=== PATIENT | male | born 1970 | race Caucasian/White ===

== ENCOUNTER 2021-07-18 08:42 | Inpatient (IN) ==
[2021-07-18] MEDS ORDERED: ALBUT/IPRATROP 3MG/0.5MG NEB 3 ML VIAL INH STA (09:28)
[2021-07-18] MEDS ORDERED: FUROSEMIDE 40 MG/4 ML VIAL IV STA (09:28)
--- NOTE | 2021-07-18 09:36 | Emergency Department Note ---
History of Present Illness General Chief complaint: Shortness of Breath/Dyspnea Stated complaint: SOB, WET COUGH, DIZZY, EDEMA Time Seen by Provider: 07/18/21 09:13 History of Present Illness 50-year-old male presents to the ED with a chief complaint of shortness of breath. The patient states that his symptoms started Friday with some dizziness. He began feeling short of breath yesterday with the cough that is productive for phlegm. He also noticed some gurgling noises in his throat. His shortness of breath is worse with exertion. He has had the Covid vaccine. No additional complaints at this time. Home Medications Medication Instructions Recorded Confirmed Type atorvastatin 20 mg tablet 20 mg PO QDL 11/24/18 07/18/21 History cinnamon bark 500 mg capsule 2 cap PO BID 11/24/18 07/18/21 History (Cinnamon) cyanocobalamin (vitamin B-12) 1,000 mcg PO QDL 11/24/18 07/18/21 History 1,000 mcg tablet (Vitamin B-12) insulin aspart U-100 100 unit/mL 30 unit SUBCUT AC 11/24/18 07/18/21 History subcutaneous cartridge (Novolog PenFill U-100 Insulin aspart) levothyroxine 100 mcg capsule 100 mcg PO QAM 11/24/18 07/18/21 History lisinopril 20 1.5 tab PO QDL 11/24/18 07/18/21 History mg-hydrochlorothiazide 25 mg tablet metformin 1,000 mg tablet,extended 1,000 mg PO BID 11/24/18 07/18/21 History release 24hr multivitamin 1 tab PO QDL 11/24/18 07/18/21 History insulin degludec 200 unit/mL (3 90 unit SUBCUT DAILY 07/18/21 07/18/21 History mL) subcutaneous pen (Tresiba FlexTouch U-200 insulin) Allergies Allergy/AdvReac Type Severity Reaction Status Date / Time Penicillins Allergy Intermediate HIVES Verified 07/18/21 09:47 Past Med/Surg History Medical History (Updated 07/18/21 @ 11:29 by Latrell Doshi DO) Cardiac murmur as a teenager, no issues since Diabetes mellitus, type 2 Hyperlipidemia Hypertension Hypothyroidism Morbid obesity Patient was 366# when he had partial toe amputation done. Now patient weights 419 pounds. Peripheral neuropathy Surgical History History of cataract surgery RT CATARACT History of partial amputation of toe of left foot 2013 done at [facility] by Dr. vinson. Airway exam at the time showed MP 2. 3 FB TMD. Procedure done under popliteal nerve block and sedation (propofol/fentanyl/versed) without issues. Family History Grandfather (Paternal) Family history of diabetes mellitus Grandmother (Maternal) Family history of diabetes mellitus Social History Smoking Status: Never smoker Second Hand Exposure: No; Hx Alcohol Use: Yes Alcohol type: beer, wine and hard liquor Hx Substance Use: No Preferred Language: Filipino Communication Ability: Effective Pallet Sorter Required: No Beliefs That Will Affect Care: None Current Living Situation: Alone Feels Safe at Home: Yes Assistive Devices: Glasses Review of Systems A total of 10 systems reviewed and were otherwise negative Physical Exam Vital Signs Vital Signs - 24 hr 07/18/21 08:49 07/18/21 08:58 07/18/21 09:09 Temperature 36.6 C Temperature Source Oral Pulse Rate 125 H 128 H Pulse Rate [Right Finger] Pulse Rate from SpO2 Sensor 125 H Respiratory Rate 28 H 26 H Respiratory Effort / Characteristics Blood Pressure 181/94 H 181/94 H Blood Pressure Mean 123 123 Pulse Oximetry 93 86 L 86 L Oxygen Delivery Method Room Air Oxygen Flow Rate 6 Sepsis Recent Fever Within 48 Hours No Sepsis New/Unexplained Change in Mental Status N/A Sepsis Action Taken by Nursing No Action Required Oxygen Flow Rate - Titration 6 Pulse Oximetry Post Tiitration 91 07/18/21 09:37 07/18/21 10:08 07/18/21 10:26 Temperature Temperature Source Pulse Rate 112 H Pulse Rate [Right Finger] 115 H Pulse Rate from SpO2 Sensor 112 H Respiratory Rate 18 26 H Respiratory Effort / Characteristics Spontaneous Blood Pressure 148/95 H Blood Pressure Mean 112 Pulse Oximetry 91 94 95 Oxygen Delivery Method Nasal Cannula Nasal Cannula Oxygen Flow Rate 6 5 6 Sepsis Recent Fever Within 48 Hours Sepsis New/Unexplained Change in Mental Status Sepsis Action Taken by Nursing Oxygen Flow Rate - Titration Pulse Oximetry Post Tiitration 07/18/21 10:30 Temperature Temperature Source Pulse Rate 115 H Pulse Rate [Right Finger] Pulse Rate from SpO2 Sensor 115 H Respiratory Rate 26 H Respiratory Effort / Characteristics Blood Pressure 155/96 H Blood Pressure Mean 115 Pulse Oximetry 95 Oxygen Delivery Method Oxygen Flow Rate 6 Sepsis Recent Fever Within 48 Hours Sepsis New/Unexplained Change in Mental Status Sepsis Action Taken by Nursing Oxygen Flow Rate - Titration Pulse Oximetry Post Tiitration CONSTITUTIONAL/VITAL SIGNS: Reviewed / noted above. GENERAL: Non-toxic in appearance. INTEGUMENTARY: Warm, dry, and [place]. HEAD: Normocephalic. EYES: without scleral icterus or trauma. ENT/OROPHARYNX: clear and moist. LYMPHADENOPATHY/NECK: Is supple without lymphadenopathy or meningismus. RESPIRATORY: Coarse bilateral breath sounds left greater than right no increased work of breathing. CARDIOVASCULAR: Regular rate and rhythm. GI/ABDOMEN: Soft and nontender. No organomegaly or pulsatile mass. EXTREMITIES: Warm and well perfused. Bilateral pedal edema. BACK: No CVA tenderness. NEUROLOGICAL: Intact without focal deficits. PSYCHIATRIC: normal affect. MUSCULOSKELETAL: Normally developed with good muscle tone. TRIAGE NURSING DOCUMENTATION REVIEWED. Course Administered Medications Discontinued Medications Albuterol (Albut/Ipratrop 3mg/0.5mg Neb 3 Ml Vial) 3 ml INH NOW STA Stop: 07/18/21 09:29 Last Admin: 07/18/21 10:07 Dose: 3 ml Documented by: [id number] Furosemide (Furosemide 40 Mg/4 Ml Vial) 40 mg IV NOW STA Stop: 07/18/21 09:29 Last Admin: 07/18/21 10:22 Dose: 40 mg Documented by: [id number] Critical Care Time Critical Care Time: Yes I have personally spent 30 minutes of critical care time in the direct management of this patient. This includes bedside care, interpretation of diagnostic studies, and testing, discussion with consultants, patient, and family members, and other required patient management activities. This 30 m inutes is in excess of all separately billable procedures. Medical Decision Making Differential Diagnosis The differential was considered includes acute myocardial infarction, acute coronary syndrome, myocarditis, pericarditis, pericardial effusions /tamponad, esophageal perforation, pulmonary embolism, pneumonia, pneumothorax, cardiomyopathy, congestive heart, anemia , COPD/asthma exacerbation. Medical Records Attestation: I reviewed the patient's medical records. Home Medications Current Medication List: was personally reviewed by me Laboratory Data Attestation: I reviewed the patient's lab results. Result diagrams: 07/18/21 10:24 07/18/21 10:24 Lab Results 07/18/21 07/18/21 07/18/21 Range/Units 10:11 10:11 10:11 WBC (4.8-10.8) K/uL RBC (4.7-6.1) M/uL Hgb (14.0-18.0) g/dL Hct (42-52) % MCV (80-100) fL MCH (25-34) pg MCHC (32-36) g/dL RDW Std Deviation (36.4-46.3) fL RDW Coeff of Bibi (11.5-14.5) % Plt Count (130-400) K/uL MPV (7.4-10.4) fL Immature Gran % (Auto) % Neut % (Auto) % Lymph % (Auto) % [place] % (Auto) % Eos % (Auto) % Baso % (Auto) % Neut # (Auto) (1.4-6.5) K/uL Lymph # (Auto) (1.2-3.4) K/uL [place] # (Auto) (0.11-0.59) K/uL Eos # (Auto) (0-0.5) K/uL Baso # (Auto) (0-0.2) K/uL Immature Gran # (Auto) (0.00-0.02) K/uL Absolute Nucleated RBC (0-0) K/uL Nucleated RBC % (auto) % PT (9.0-12.0) Seconds INR (0.9-1.1) APTT (21.0-31.0) Seconds PTT Ratio Sodium (136-145) mmol/L Potassium (3.5-5.1) mmol/L Chloride (98-107) mmol/L Carbon Dioxide (21-32) mmol/L Anion Gap (3-11) BUN (7-18) mg/dl Creatinine (0.6-1.4) mg/dl Est Cr Clr Drug Dosing Est GFR ( Amer) ml/min Est GFR (Non-Af Amer) ml/min BUN/Creatinine Ratio (10-20) Glucose (70-99) mg/dl Calcium (8.5-10.1) mg/dl Magnesium (1.8-2.4) mg/dl Total Bilirubin (0.2-1) mg/dl AST (15-37) U/L ALT (12-78) U/L Alkaline Phosphatase (45-117) U/L Troponin I (0-0.045) ng/ml NT-Pro-B Natriuret Pep (0-450) pg/ml Total Protein (6.4-8.2) gm/dl Albumin (3.4-5.0) gm/dl Globulin (2.5-4.0) gm/dl Albumin/Globulin Ratio (0.9-2) COVID-19 Eval Order Covid19 at [facility] SARS-CoV-2 (PCR) NEGATIVE (Negative) Influ A Molecular Assay Negative (Negative) Influ B Molecular Assay Negative (Negative) 07/18/21 07/18/21 07/18/21 Range/Units 10:24 10:24 10:24 WBC 14.92 H (4.8-10.8) K/uL RBC 5.20 (4.7-6.1) M/uL Hgb 14.7 (14.0-18.0) g/dL Hct 43.3 (42-52) % MCV 83.3 (80-100) fL MCH 28.3 (25-34) pg MCHC 33.9 (32-36) g/dL RDW Std Deviation 43.4 (36.4-46.3) fL RDW Coeff of Bibi 14.7 H (11.5-14.5) % Plt Count 256 (130-400) K/uL MPV 11.0 H (7.4-10.4) fL Immature Gran % (Auto) 0.7 % Neut % (Auto) 77.9 % Lymph % (Auto) 12.8 % [place] % (Auto) 7.7 % Eos % (Auto) 0.7 % Baso % (Auto) 0.2 % Neut # (Auto) 11.62 H (1.4-6.5) K/uL Lymph # (Auto) 1.91 (1.2-3.4) K/uL [place] # (Auto) 1.15 H (0.11-0.59) K/uL Eos # (Auto) 0.10 (0-0.5) K/uL Baso # (Auto) 0.03 (0-0.2) K/uL Immature Gran # (Auto) 0.11 H (0.00-0.02) K/uL Absolute Nucleated RBC 0.03 H (0-0) K/uL Nucleated RBC % (auto) 0.2 % PT 10.5 (9.0-12.0) Seconds INR 1.0 (0.9-1.1) APTT 26.3 (21.0-31.0) Seconds PTT Ratio 1.0 Sodium 135 L (136-145) mmol/L Potassium 4.0 (3.5-5.1) mmol/L Chloride 105 (98-107) mmol/L Carbon Dioxide 21 (21-32) mmol/L Anion Gap 9.0 (3-11) BUN 32 H (7-18) mg/dl Creatinine 1.44 H (0.6-1.4) mg/dl Est Cr Clr Drug Dosing Not Reportable Est GFR ( Amer) 65.6 ml/min Est GFR (Non-Af Amer) 56.6 ml/min BUN/Creatinine Ratio 22.3 H (10-20) Glucose 353 H* (70-99) mg/dl Calcium 9.6 (8.5-10.1) mg/dl Magnesium 1.9 (1.8-2.4) mg/dl Total Bilirubin 0.7 (0.2-1) mg/dl AST 23 (15-37) U/L ALT 35 (12-78) U/L Alkaline Phosphatase 69 (45-117) U/L Troponin I 0.144 H* (0-0.045) ng/ml NT-Pro-B Natriuret Pep 2206 H (0-450) pg/ml Total Protein 7.9 (6.4-8.2) gm/dl Albumin 3.6 (3.4-5.0) gm/dl Globulin 4.3 H (2.5-4.0) gm/dl Albumin/Globulin Ratio 0.8 L (0.9-2) COVID-19 Eval Order SARS-CoV-2 (PCR) (Negative) Influ A Molecular Assay (Negative) Influ B Molecular Assay (Negative) Imaging Data Radiologist's Impression: Chest X-Ray 07/18/21 09:28 SINGLE VIEW CHEST CLINICAL HISTORY: Dyspnea. FINDINGS: 2 AP, portable, upright chest radiographs are obtained. No prior studies are available for comparison at the time of dictation. The heart is top normal for projection. There is dense airspace consolidation in the left midlung. The right lung appears clear. No large pleural effusion or pneumothorax is seen. The bony thorax is grossly intact. IMPRESSION: Dense airspace consolidation in the left midlung is typical for pneumonia. Clinical correlation will be required and radiographic follow-up to resolution is recommended. ACT 112: Negative or not required by law. Electronically signed by: Rosendo Chen M.D. 07/18/2021 9:39 AM ECG Data Attestation: I personally reviewed and interpreted this ECG as follows: Additional Comments: Twelve-lead EKG: Per my interpretation shows a sinus tach at a rate of 126. No ST elevation. No PVCs. Normal QTC. MDM Narrative Patient presents with shortness of breath that started yesterday. He has a cough productive of clear sputum. Dyspnea on exertion. His exam revealed vital signs initially showing pulse ox of 86%. He does not use home oxygen. His blood pressure was elevated at 181/94. Heart rate was 128. EKG shows a sinus tach at a rate of 126. Respiratory rate was 26. History of diabetes type 2 on insulin and pills. Also overweight. He also is being treated for hypertension. Clinical exam suggest pedal edema and possibly rales. Chest x-ray is positive for dense airspace consolidation in the left midlung typical for pneumonia. White blood cell count is 14.9. Troponin is elevated 2.144. BNP is elevated 2206. Glucose is 353. BUN is 32. Patient was initially given Lasix clinically a half findings suggestive of congestive heart failure and hypertension. The patient was also given a DuoNeb treatment as well as IV Zithromax and IV Rocephin. He will be seen by the hospitalist for further inpatient evaluation and care. The patient's elevated troponin could be related to his hypoxia. EKG did not show any acute ischemic changes. Impression & Plan Pneumonia involving left lung, Hypoxia, Elevated troponin, Elevated brain n atriuretic peptide (BNP) level Discharge Plan Visit Data Chief Complaint: Shortness of Breath/Dyspnea Stated Complaint: SOB, WET COUGH, DIZZY, EDEMA ED Provider: Latrell Doshi Discharge Problem: Pneumonia involving left lung, Hypoxia, Elevated troponin, Elevated brain natriuretic peptide (BNP) level Patient Disposition: Being Evaluated by Hospitalist Forms Stand Alone Forms: My [facility] Prescriptions Prescriptions: No Action atorvastatin 20 mg Tablet 20 mg PO QDL RF: 0 multivitamin Tablet 1 tab PO QDL RF: 0 cyanocobalamin (vitamin B-12) [Vitamin B-12] 1,000 mcg Tablet 1,000 mcg PO QDL RF: 0 lisinopril-hydrochlorothiazide 20-25 mg Tablet 1.5 tab PO QDL RF: 0 insulin aspart U-100 [Novolog PenFill U-100 Insulin] 100 unit/mL Cartridge 30 unit SUBCUT AC RF: 0 metformin 1,000 mg Tablet Extended Release 24hr 1,000 mg PO BID RF: 0 cinnamon bark [Cinnamon] 500 mg Capsule 2 cap PO BID RF: 0 levothyroxine 100 mcg Capsule 100 mcg PO QAM RF: 0 Tresiba FlexTouch U-200 200 unit/mL (3 mL) insulin pen 90 unit SUBCUT DAILY RF: 0 Referrals Referrals: Daniela Sam DO [Primary Care Provider] -
--- NOTE | 2021-07-18 09:40 | XRay Report ---
SINGLE VIEW CHEST CLINICAL HISTORY: Dyspnea. FINDINGS: 2 AP, portable, upright chest radiographs are obtained. No prior studies are available for comparison at the time of dictation. The heart is top normal for projection. There is dense airspace consolidation in the left midlung. The right lung appears clear. No large pleural effusion or pneumo thorax is seen. The bony thorax is grossly intact. IMPRESSION: Dense airspace consolidation in the left midlung is typical for pneumonia. Clinical corre lation will be required and radiographic follow-up to resolution is recommended. ACT 112: Negative or not required by law. Electronically signed by: Rosendo Chen M.D. 07/18/2021 9:39 AM
[2021-07-18 10:42] LABS: Basophils # (auto) 0.03 K/uL (0-0.2); Basophils % (auto) 0.2 %; Eosinophils % (auto) 0.7 %; Hematocrit (blood only) 43.3 % (42-52); Hemoglobin 14.7 g/dL (14.0-18.0); Immature Granulocytes # (auto) 0.11 K/uL (0.00-0.02); Immature Granulocytes % (auto) 0.7 %; Lymphocytes # (auto) 1.91 K/uL (1.2-3.4); Lymphocytes % (auto) 12.8 %; Mean Corpuscular Hemoglobin 28.3 pg (25-34); Mean Corpuscular Hgb Conc 33.9 g/dL (32-36); Mean Corpuscular Volume 83.3 fL (80-100); Monocytes # (auto) 1.15 K/uL (0.11-0.59); Monocytes % (auto) 7.7 %; Neutrophils # (auto) 11.62 K/uL (1.4-6.5); Neutrophils % (auto) 77.9 %; Nucleated RBC # (auto) 0.03 K/uL (0-0); Nucleated RBC % (auto) 0.2 %; Platelet Count 256 K/uL (130-400); RDW Coefficient of Variation 14.7 % (11.5-14.5); RDW Standard Deviation 43.4 fL (36.4-46.3); White Blood Count 14.92 K/uL (4.8-10.8)
[2021-07-18 10:50] LABS: Influenza A virus by PCR Negative (Negative); Influenza B virus by PCR Negative (Negative)
[2021-07-18 10:53] LABS: Partial Thromboplastin Time 26.3 Seconds (21.0-31.0); Prothrombin Time 10.5 Seconds (9.0-12.0)
[2021-07-18] MEDS ORDERED: cefTRIAXone SODIUM 1,000 MG/50 ML BAG IV STA (11:03)
[2021-07-18] MEDS ORDERED: AZITHROMYCIN 500 MG in DEXTROSE 5% 250 ML IV STA (11:03)
[2021-07-18 11:12] LABS: Alanine Aminotransferase 35 U/L (12-78); Albumin Globulin Ratio 0.8 (0.9-2); Albumin Level 3.6 gm/dl (3.4-5.0); Alkaline Phosphatase 69 U/L (45-117); Aspartate Aminotransferase 23 U/L (15-37); BUN Creatinine Ratio 22.3 (10-20); Bilirubin,Total 0.7 mg/dl (0.2-1); Blood Urea Nitrogen 32 mg/dl (7-18); Calcium 9.6 mg/dl (8.5-10.1); Carbon Dioxide 21 mmol/L (21-32); Chloride 105 mmol/L (98-107); Est GFR (African American) 65.6 ml/min; Est GFR (Non-African American) 56.6 ml/min; Globulin 4.3 gm/dl (2.5-4.0); Glucose 353 mg/dl (70-99); Magnesium 1.9 mg/dl (1.8-2.4); NT Pro B Type Natriuretic Pept 2206 pg/ml (0-450); Sodium 135 mmol/L (136-145); Total Protein 7.9 gm/dl (6.4-8.2); Troponin I 0.144 ng/ml (0-0.045)
[2021-07-18 11:25] LABS: Beta-Hydroxybutyrate 3.42 mg/dl (0.2-2.81)
[2021-07-18] MEDS ORDERED: ASPIRIN CHEW 324 MG PO STA (11:29)
--- NOTE | 2021-07-18 11:53 | History & Physical Report ---
Date of Service July 18, 2021 Assessment & Plan (1) Acute respiratory failure with hypoxia: (2) CHF (congestive heart failure): (3) Pneumonia involving left lung: (4) Elevated troponin: (5) EDITH (acute kidney injury): (6) Diabetic peripheral neuropathy associated with type 2 diabetes mellitus: (7) Hypertension: (8) Hyperlipidemia: (9) Morbid obesity: Plan: This is a 50-year-old male who has significant past medical history of insulin- dependent type 2 diabetes, HTN, hypothyroidism, morbid obesity, diabetic neuropathy who presents to ED secondary to shortness of breath x1 day. Pt met SEPSIS criteria on admission 12/19 to wbc 14.92k, tachypnea and ta chycardia. Blood cultures obtained CXR: concerning for LLL PNA - community acquired He received IV azithromycin and Rocephin Also of concern is acute onset CHF, given acute onset SOB, elevated pro-bnp, and elevated troponin. Acute hypoxic respiratory failure with hypoxia Possible Community acquired PNA admit to PCU procal negative, repeat in a.m. start IV cefepime and oral doxycycline await blood cultures Pt did not have significant URI sx or resp sx until yesterday and no fever, but given sepsis criteria will continue with antibiotics until infection r/o Possible Acute onset CHF elevated troponin received IV lasix 40mg in ED obtain echocardiogram pt denies chest pain consult cardiology IV lasix 40mg BID17 strict intake and output, daily weight cycle troponins EDITH baseline cr from 2018 1.1 bun/cr today 32 and 1.44 monitor renal function with diuresis hold/avoid nephrotoxic agents -metformin, lisinopril IDDM 2 with neuropathy and hyperglycemia poorly controlled, last a1c 11.4 06/2021 hold metformin Give 10 units regular insulin x 1 now (bsg 384) lantus/novolog per protocol elevated beta hydroxybutyric acid, but AG normal, no sign of HHS/DKA consult glycemic pharmacy HTN BP improved after lasix administration hold Lisinopril/hctz 2/2 to edith monitor HLD continue statin Morbid obesity encourage lifestyle modifications Pt will need GRADY evaluation as outpt Hypothyroidism continue levothyroxine check tsh in a.m. DVT ppx: Lovenox SQ BID 2/2 to weight FULL CODE Dispo: PCU PCP: Cecy Pt was seen and examined in collaboration with Dr. Demarco, please see addendum History of Present Illness Chief Complaint: SOB x 1 day. Primary Care Provider: Daniela Sam, DO This is a 50-year-old male who has significant past medical history of insulin- dependent type 2 diabetes, HTN, hypothyroidism, morbid obesity, diabetic neuro [place] who presents to ED secondary to shortness of breath x1 day. Of significance approximately 2 weeks ago patient was diagnosed with herpes zoster. He was prescribed gabapentin for neuropathic pain. Pt recently had increase in gabapentin from 1 tablet at bedtime to one tablet TID. He has been on gabapentin for 1.5wks. He feels gabapentin helped with pain, but he was concerned he was having a reaction so he stopped it last night due to developing shortness of breath. He states 2 days ago he felt dizziness and weak, but attributed it to his blood sugar. Yesterday he felt himself becoming SOB. SOB mostly was with exertion and doing little activity including going from living room to bathroom. He knows he is out of shape, but feels just little activity causes him to be short of breath. It resolved with substantial rest. He also c/o cough, wet but unable to produce. He had one episode of loose stool from last night and attributes it to metformin. He has been working from home since [place] due to location being on pant line and unable to wear pants. Denies sick contacts. Vaccinated for covid. He admits to gaining 40lbs since the start of covid. He hasn't noticed any significant fluctuation in weight in past 2 weeks. He c/o of increased swelling to b/l lower extremities. Has chronic discoloration of lower extremities and does not feel it is worse. Denies hx of CAD or heart failure. He has had leg swelling chronically for years. He does snore at night when laying on back, but on side okay. Denies being tested for GRADY. Denies f/c/s, syncope, chest pain, hemopytsis, n/v/abdominal pain, dysuria, increased freq/urg, melena, hematochezia. He continues to have burning sensation in location of shingles, but rash is gone. In ED patient was significantly hypoxic requiring 6 L of oxygen. Chest x-ray concerning for consolidative process in left lower lobe concerning for possible development of pneumonia. He did meet sepsis criteria secondary to leukocytosis 14.92k, tachycardia and tachypnea. He was treated with IV Rocephin and azithromycin to cover for community-acquired pneumonia. There was also concern for congestive heart failure component of where he was given 40 mg of IV Lasix. He does admit to urinating since administration. Further lab abnormalities include elevated BUN/creatinine at 30-1.44, glucose 353, troponin elevated 0.144, proBNP 2206. His procalcitonin was WNL. He tested negative for SARS-CoV-2 and influenza. He is fully vaccinated for COVID-19. Allergies Allergy/AdvReac Type Severity Reaction Status Date / Time Penicillins Allergy Intermediate HIVES Verified 07/18/21 09:47 Home Medications Medication Instructions Recorded Confirmed Type atorvastatin 20 mg tablet 20 mg PO QDL 11/24/18 07/18/21 History cinnamon bark 500 mg capsule 2 cap PO BID 11/24/18 07/18/21 History (Cinnamon) cyanocobalamin (vitamin B-12) 1,000 mcg PO QDL 11/24/18 07/18/21 History 1,000 mcg tablet (Vitamin B-12) insulin aspart U-100 100 unit/mL 30 unit SUBCUT AC 11/24/18 07/18/21 History subcutaneous cartridge (Novolog PenFill U-100 Insulin aspart) levothyroxine 100 mcg capsule 100 mcg PO QAM 11/24/18 07/18/21 History lisinopril 20 2 tab PO QDL 11/24/18 07/18/21 History mg-hydrochlorothiazide 25 mg tablet metformin 1,000 mg tablet,extended 1,000 mg PO BID 11/24/18 07/18/21 History release 24hr multivitamin 1 tab PO QDL 11/24/18 07/18/21 History insulin degludec 200 unit/mL (3 45 unit SUBCUT BID 07/18/21 07/18/21 History mL) subcutaneous pen (Tresiba FlexTouch U-200 insulin) Past Med/Surg History Medical History (Updated 07/18/21 @ 12:42 by Brenda Dixon PA-C) Cardiac murmur as a teenager, no issues since Diabetes mellitus, type 2 Hyperlipidemia Hypertension Hypothyroidism Morbid obesity Patient was 366# when he had partial toe amputation done. Now patient weights 419 pounds. Peripheral neuropathy Status post partial amputation of foot Surgical History History of cataract surgery RT CATARACT History of partial amputation of toe of left foot 2013 done at [facility] by Dr. vinson. Airway exam at the time showed MP 2. 3 FB TMD. Procedure done under popliteal nerve block and sedation (propofol/fentanyl/versed) without issues. 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 Beliefs That Will Affect Care: None marital status: Single Current Living Situation: Alone Feels Safe at Home: Yes Assistive Devices: Glasses Review of Systems Review of Systems: All systems reviewed & are unremarkable except as noted in HPI & below Physical Exam Physical Exam: Constitutional: WD/WN,morbidly obese, vitals as above, NAD, sitting up in bed, pleasant, conversing easily Head: Normocephalic, Atraumatic Eyes: PERRL, conjunctivae normal, anicteric sclerae ENMT: external ear and nose normal, oropharynx normal Neck: trachea midline, no thyromegaly normal visual inspection Respiratory: increased respiratory effort, tachypneic, lungs clear to auscultation, no wheeze, rales, rhonchi. no accessory muscle use, on 6L NC Cardiovascular: tachycardic rate, reg rhythm, no murmur, b/l chronic venous stasis changes, nonpitting edema, obese LE. Vessels: no JVD or carotid bruit Chest: normal inspection of chest Abdomen: normal bowel sounds, soft, nontender, no hepatosplenomegaly Musculoskeletal: no cyanosis or clubbing, extremities motor strength 5/5 Skin: no rashes, warm and dry normal turgor Neurologic: PERRL, EOMI, accommodation nl, no face palsy, no dysarthria CN's II-XI intact bilaterally and moves all extremities Psychiatric: A+Ox3, euthymic affect Lymphatic: no cervical or axillary lymphadenopathy : deferred Results & Data Results & Data ([place]) Vital Signs (Past 12 Hours) Vital Signs Temp Pulse Pulse Resp BP Pulse Ox 07/18/21 10:30 115 H 26 H 155/96 H 95 07/18/21 10:26 112 H 26 H 148/95 H 95 07/18/21 10:08 115 H 18 94 07/18/21 09:37 91 07/18/21 09:09 86 L 07/18/21 08:58 36.6 C 128 H 26 H 181/94 H 86 L 07/18/21 08:49 125 H 28 H 181/94 H 93 Diagnostic Findings Chest X-Ray 07/18/21 09:28 SINGLE VIEW CHEST CLINICAL HISTORY: Dyspnea. FINDINGS: 2 AP, portable, upright chest radiographs are obtained. No prior studies are available for comparison at the time of dictation. The heart is top normal for projection. There is dense airspace consolidation in the left midlung. The right lung appears clear. No large pleural effusion or pneumothorax is seen. The bony thorax is grossly intact. IMPRESSION: Dense airspace consolidation in the left midlung is typical for pneumonia. Clinical correlation will be required and radiographic follow-up to resolution is recommended. ACT 112: Negative or not required by law. Electronically signed by: Rosendo Chen M.D. 07/18/2021 9:39 AM Medications Administered Medication List Discontinued Medications Albuterol (Albut/Ipratrop 3mg/0.5mg Neb 3 Ml Vial) 3 ml INH NOW STA Stop: 07/18/21 09:29 Last Admin: 07/18/21 10:07 Dose: 3 ml Documented by: [id number] Aspirin (Aspirin Chew 324 Mg) 324 mg PO NOW STA Stop: 07/18/21 11:30 Last Admin: 07/18/21 11:41 Dose: 324 mg Documented by: [id number] Furosemide (Furosemide 40 Mg/4 Ml Vial) 40 mg IV NOW STA Stop: 07/18/21 09:29 Last Admin: 07/18/21 10:22 Dose: 40 mg Documented by: [id number] Ceftriaxone Sodium (Rocephin) 1,000 mg in 50 mls @ 100 mls/hr IV NOW STA Stop: 07/18/21 11:32 Last Infusion: 07/18/21 12:29 Dose: 0 mls/hr Documented by: [id number] Admin: 07/18/21 11:36 Dose: 100 mls/hr Documented by: [id number] ECG Rate (beats per minute): 126 Rhythm: sinus tachycardia COVID-19 Results Results COVID-19 Adm Lab Results: RBC 5.20 M/uL (4.7-6.1) 07/18/21 WBC 14.92 K/uL (4.8-10.8) H 07/18/21 Hgb 14.7 g/dL (14.0-18.0) 07/18/21 Hct 43.3 % (42-52) 07/18/21 Plt Count 256 K/uL (130-400) 07/18/21 Neutrophils (%) (Auto) 77.9 % 07/18/21 Lymphocytes (%) (Auto) 12.8 % 07/18/21 Monocytes # (Auto) 1.15 K/uL (0.11-0.59) H 07/18/21 Eosinophils # (Auto) 0.10 K/uL (0-0.5) 07/18/21 Immature Granulocyte % (Auto) 0.7 % 07/18/21 Neutrophils # (Auto) 11.62 K/uL (1.4-6.5) H 07/18/21 Lymphocytes # (Auto) 1.91 K/uL (1.2-3.4) 07/18/21 Monocytes # (Auto) 1.15 K/uL (0.11-0.59) H 07/18/21 Eosinophils # (Auto) 0.10 K/uL (0-0.5) 07/18/21 Basophils # (Auto) 0.03 K/uL (0-0.2) 07/18/21 Immature Granulocyte # (Auto) 0.11 K/uL (0.00-0.02) H 07/18/21 Na 135 mmol/L (136-145) L 07/18/21 K 4.0 mmol/L (3.5-5.1) 07/18/21 Cl 105 mmol/L (98-107) 07/18/21 CO2 21 mmol/L (21-32) 07/18/21 Anion Gap 9.0 (3-11) 07/18/21 BUN 32 mg/dl (7-18) H 07/18/21 Creatinine 1.44 mg/dl (0.6-1.4) H 07/18/21 BUN/Creatinine Ratio 22.3 (10-20) H 07/18/21 Glucose Level 353 mg/dl (70-99) H* 07/18/21 Ca 9.6 mg/dl (8.5-10.1) 07/18/21 Total Bilirubin 0.7 mg/dl (0.2-1) 07/18/21 AST/SGOT 23 U/L (15-37) 07/18/21 ALT/SGPT 35 U/L (12-78) 07/18/21 Alkaline Phosphatase 69 U/L (45-117) 07/18/21 Total Protein 7.9 gm/dl (6.4-8.2) 07/18/21 Albumin 3.6 gm/dl (3.4-5.0) 07/18/21 Globulin 4.3 gm/dl (2.5-4.0) H 07/18/21 Albumin/Globulin Ratio 0.8 (0.9-2) L 07/18/21 Troponin I 0.144 ng/ml (0-0.045) H* 07/18/21 XK-Ccf-R-Type Natriuretic Pep 2206 pg/ml (0-450) H 07/18/21 Procalcitonin < 0.05 ng/ml (0-0.5) 07/18/21 PTT 26.3 Seconds (21.0-31.0) 07/18/21 INR 1.0 (0.9-1.1) 07/18/21 COVID-19 PCR NEGATIVE (Negative) 07/18/21 Chest X-Ray 07/18/21 Code Status & VTE Plan Code Status Full Code VTE Prophylaxis Plan VTE Prophylaxis will be ordered: Yes Supervising Physician Co-Signing Physician Notes Patient is a 50-year-old male with history of uncontrolled diabetes mellitus, hypertension, hypothyroidism and other medical problems presents with history of shortness of breath, cough with yellowish expectoration, dizziness and generalized weakness since 2 days duration. He was recently diagnosed to have herpes zoster and was placed on gabapentin which he believes attributed to possible reaction which caused his symptoms. He admits to having weight gain of about 40 pounds in 1 year duration and has worsening bilateral lower extremity edema. Please review HPI for complete details of presentation. He was noted to have leukocytosis 14 k, normal procalcitonin, lactic acid levels pending, EDITH with creatinine 1.4, blood glucose elevated at 353, 114, BNP elevated 2206. Patient denied any chest pain. EKG showed no signs of acute ischemia. Chest x- ray suggestive of dense airspace consolidation of the left midlung concerning for pneumonia. He was found to be hypoxic while in ED requiring 6 L of supplemental oxygen to maintain saturation. Covid screen was negative. On exam patient is morbidly obese, mild respiratory distress, normocephalic atraumatic, EOMI, lungs-decreased breath sounds, clear to auscultation, S1-S2,+ sinus tachycardia, no murmur,+ bilateral lower extremity edema, abdomen soft, nontender, normal bowel sounds, alert, awake, oriented, grossly no focal deficits, + bilateral chronic venous stasis changes of lower extremities,+ herpetic rash on right hip/groin thigh region. Patient is admitted for management of sepsis secondary to community-acquired pneumonia, acute respiratory failure with hypoxia. Also concern for acute CHF. Agree with broad-spectrum antibiotics with cefepime, doxycycline, nebs as needed. Blood cultures obtained. Lactic acid levels pending. Will obtain resting echo, trend cardiac enzymes and request cardiology evaluation. Agree with IV Lasix 40 mg twice daily. Monitor I's and O's, daily weight. Will hold lisinopril, HCTZ for now. Monitor renal function. Will obtain venous Dopplers to rule out DVT. Consider chest CTA if no improvement and persistent hypoxia to rule out PE, if renal function permits. Agree with insulin therapy while hospitalized for management of diabetes mellitus. Will consult staff educator. I personally reviewed the record. Patient is interviewed and examined at bedside. Patient's care is coordinated with Brenda Dixon PA-C. Please refer to the documentation above for details of patient's presentation and for discussion of other issues. (1) Pneumonia involving left lung Lung location: unspecified part of lung Pneumonia type: due to unspecified organism Qualified Code(s): J18.9 - Pneumonia, unspecified organism
[2021-07-18] MEDS ORDERED: NovoLIN-R INSULIN PER UNIT CHARGE IV STA (12:30)
[2021-07-18] MEDS ORDERED: INSULIN HUMAN REGULAR PER UNIT 10 UNITS in SYRINGE 9.9 ML IV ONE ×2 (12:45→17:15)
--- NOTE | 2021-07-18 15:14 | Ultrasound Report ---
BILATERAL LOWER EXTREMITY VENOUS DOPPLER HISTORY: Bilateral lower extremity edema COMPARISON STUDY: None. FINDINGS: There is normal compressibility, flow, and augmentation within the right lower extremity de ep venous system. The left common femoral left superficial femoral veins are patent. There is occlusi ve thrombus within the left popliteal and posterior tibial veins. The left anterior tibial and perone al veins are patent. IMPRESSION: 1. No DVT within the right lower extremity. 2. Left popliteal and left posterior tibial deep vein thrombosis. ACT 112: Negative or not required by law. Electronically signed by: Kenneth Hicks M.D. 07/18/2021 3:13 PM
[2021-07-18] MEDS ORDERED: CARBOHYDRATES FOR HYPOGLYCEMIA PO PRN (15:22)
[2021-07-18] MEDS ORDERED: ALUMINUM/MAGNESIUM SUSP 30 ML UDC PO PRN (15:22)
[2021-07-18] MEDS ORDERED: DEXTROSE 50% 50 ML SYRINGE IV PRN (15:22)
[2021-07-18] MEDS ORDERED: GLUCOSE 10 TABS/TUBE PO PRN (15:22)
[2021-07-18] MEDS ORDERED: POLYETHYLENE (MIRALAX) 17 GM PACK PO PRN (15:22)
[2021-07-18] MEDS ORDERED: GLUCOSE 40% GEL 15 GM TUBE PO PRN (15:22)
[2021-07-18] MEDS ORDERED: GLUCAGON FOR INJ 1 MG VIAL SQ PRN (15:22)
[2021-07-18] MEDS ORDERED: CEFEPIME CONSULT ACTIVE PRN (15:22)
[2021-07-18] MEDS ORDERED: MAGNESIUM HYDROXIDE SUSP 30 ML UDC PO PRN (15:22)
[2021-07-18] MEDS ORDERED: ONDANSETRON INJ 2 MG/ML 2 ML VIAL IV PRN (15:22)
[2021-07-18] MEDS ORDERED: PHARMACY GLYCEMIC MGMT CONSULT PRN (15:22)
[2021-07-18] MEDS ORDERED: ACETAMINOPHEN 325 MG TAB PO PRN (15:22)
[2021-07-18] MEDS ORDERED: Heparin IV Adult Wt-Based Standard *NO* Bolus Protocol IV SCH (16:00)
[2021-07-18] MEDS ORDERED: HEPARIN 25000 UNIT/500 ML D5W IV ONE (16:01)
[2021-07-18] MEDS: HEPARIN SODIUM/DEXTROSE 25,000 UNITS/500 ML BAG IV SCH (16:35)
[2021-07-18] MEDS: CEFEPIME 2,000 MG in SYRINGE 0 ML IV SCH ×2 (16:58→23:46)
[2021-07-18] MEDS: INSULIN ASPART 100 UNITS/ML 3 ML PEN SC SCH ×3 (17:00→23:44)
[2021-07-18] MEDS ORDERED: FUROSEMIDE 40 MG/4 ML VIAL IV SCH (17:00)
--- NOTE | 2021-07-18 17:33 | Cardiology Consultation ---
Date of Consultation July 18, 2021 Assessment & Plan (1) Acute respiratory failure with hypoxia: (2) Pneumonia involving left lung: (3) Morbid obesity: (4) Elevated brain natriuretic peptide (BNP) level: (5) Elevated troponin: (6) EDITH (acute kidney injury): 50-year-old patient admitted with acute hypoxic respiratory failure secondary to left lower lobe pneumonia. Treatment as per internal medicine. Elevated troponin and mildly elevated NT proBNP secondary to hypoxia in the set ting of acute respiratory infection. Echocardiogram performed at bedside demonstrating borderline hyperdynamic LV systolic function without regional wall motion abnormality. No significant valvular pathology visualized. Patient does not appear acutely volume overloaded on physical exam. Acute renal insufficiency noted on admission. Continue to follow fluid balance, renal function, and respiratory status closely. Clinical presentation not consistent with acute coronary syndrome. Heparin ordered for treatment of popliteal venous thrombosis. Trend cardiac enzymes as ordered. History of Present Illness Reason for Consultation: CHF, elevated troponin Requesting Physician: Dr. Demarco Attending Physician: Mitchell Demarco MD History of Present Illness 50-year-old patient presented to the emergency department with 24 hours of progressive dyspnea. Patient initially attributed shortness of breath to recent titration of gabapentin. Reports cough with yellow and white sputum production of 24-hour duration. No fever or chills. Endorses orthopnea without paroxysmal nocturnal dyspnea. Denies sick contacts. Diagnosed with shingles approximately 3 weeks ago which have nearly resolved. No recent chest discomfort or heaviness. Denies personal history of coronary disease, congestive heart failure, rheumatic fever as a child, or peripheral vascular disease. History of diabetes for more than 10 years with lower extremity neuropathy. No palpitations, lightheadedness, dizziness, syncope, or near syncope. Denies focal weakness, slurred speech, paresthesias, or gait instability. Diagnosed with left popliteal DVT on admission. Duplex ordered due to asymptomatic left lower extremity edema. IV heparin infusion initiated. Patient is hypoxic satting 90% on 3 L nasal cannula. Mildly elevated troponin and pro NT BNP noted on admission. X-ray demonstrates dense left lower lobe infiltrate. Allergies Allergy/AdvReac Type Severity Reaction Status Date / Time Penicillins Allergy Intermediate HIVES Verified 07/18/21 09:47 Home Medications Medication Instructions Recorded Confirmed Type atorvastatin 20 mg tablet 20 mg PO QDL 11/24/18 07/18/21 History cinnamon bark 500 mg capsule 2 cap PO BID 11/24/18 07/18/21 History (Cinnamon) cyanocobalamin (vitamin B-12) 1,000 mcg PO QDL 11/24/18 07/18/21 History 1,000 mcg tablet (Vitamin B-12) insulin aspart U-100 100 unit/mL 30 unit SUBCUT AC 11/24/18 07/18/21 History subcutaneous cartridge (Novolog PenFill U-100 Insulin aspart) levothyroxine 100 mcg capsule 100 mcg PO QAM 11/24/18 07/18/21 History lisinopril 20 2 tab PO QDL 11/24/18 07/18/21 History mg-hydrochlorothiazide 25 mg tablet metformin 1,000 mg tablet,extended 1,000 mg PO BID 11/24/18 07/18/21 History release 24hr multivitamin 1 tab PO QDL 11/24/18 07/18/21 History insulin degludec 200 unit/mL (3 45 unit SUBCUT BID 07/18/21 07/18/21 History mL) subcutaneous pen (Tresiba FlexTouch U-200 insulin) Patient History Medical History Cardiac murmur as a teenager, no issues since Diabetes mellitus, type 2 Hyperlipidemia Hypertension Hypothyroidism Morbid obesity Patient was 366# when he had partial toe amputation done. Now patient weights 419 pounds. Peripheral neuropathy Status post partial amputation of foot Surgical History History of cataract surgery RT CATARACT History of partial amputation of toe of left foot 2013 done at [facility] by Dr. vinson. Airway exam at the time showed MP 2. 3 FB TMD. Procedure done under popliteal nerve block and sedation (propofol/fentanyl/versed) without issues. Family History Grandfather (Paternal) Family history of diabetes mellitus Grandmother (Maternal) Family history of diabetes mellitus Social History Smoking Status: Former smoker Tobacco Type: Cigars Second Hand Exposure: No; Hx Alcohol Use: Yes Alcohol type: hard liquor Alcohol Intake Frequency: Monthly or Less Hx Substance Use: No Preferred Language: Azeri Communication Ability: Effective Fire Regulator Required: No Beliefs That Will Affect Care: None marital status: Single Current Living Situation: Alone Other Information That Helps Us Care for You: No Feels Safe at Home: Yes Safety Concerns: Feels Safe At This Time Assistive Devices: None Review of Systems Review of Systems: All systems reviewed & are unremarkable except as noted in Subjective Physical Exam Constitutional: well nourished and + obese; no acute distress Respiratory: no retractions Auscultation: + crackles (Left lower and middle lung field crackles); no rhonchi and no wheezes Cardiovascular: Rate/Rhythm: regular rate, regular rhythm and + tachycardic Heart Sounds: normal S1 and normal S2; no murmur Extremities: + edema (Trace to mild bilateral pedal and ankle edema with stasis changes. ) Gastrointestinal (Abdomen): Inspection/Auscultation: abdomen normal to inspection and normal bowel sounds; abdomen not distended and no abdominal edema Percussion/Palpation: abdomen soft; abdomen nontender, no guarding and abdomen not rigid Neurologic: CN's II-XI intact bilaterally and moves all extremities; no focal motor deficits Motor/Sensory: no tremor Psychiatric: A+Ox3, euthymic affect Results & Data ([facility]) Vital Signs (Past 12 Hours) Vital Signs Temp Pulse Pulse Resp BP BP Pulse Ox 07/18/21 15:24 36.8 C 103 H 20 119/82 90 07/18/21 14:01 99 H 24 95 07/18/21 13:30 100 H 20 99 07/18/21 13:00 99 H 20 99 07/18/21 12:30 102 H 22 99 07/18/21 11:30 110 H 26 H 132/94 98 07/18/21 11:01 123 H 28 H 177/97 H 95 07/18/21 10:56 123 H 26 H 187/113 H 94 07/18/21 10:30 115 H 26 H 155/96 H 95 07/18/21 10:26 112 H 26 H 148/95 H 95 07/18/21 10:08 115 H 18 94 07/18/21 09:37 91 07/18/21 09:09 86 L 07/18/21 08:58 36.6 C 128 H 26 H 181/94 H 86 L 09/01/21 08:49 125 H 28 H 181/94 H 93 (1) Pneumonia involving left lung Lung location: unspecified part of lung Pneumonia type: due to unspecified organism Qualified Code(s): J18.9 - Pneumonia, unspecified organism
[2021-07-18 17:41] LABS: BUN Creatinine Ratio 19.8 (10-20); Calcium 9.4 mg/dl (8.5-10.1); Creatinine Clr Calc Pharmacy 95.9 ml/min; Est GFR (African American) 59.6 ml/min; Est GFR (Non-African American) 51.4 ml/min; Potassium 3.8 mmol/L (3.5-5.1); Troponin I 0.097 ng/ml (0-0.045)
[2021-07-18 18:04] LABS: Beta-Hydroxybutyrate 1.89 mg/dl (0.2-2.81)
[2021-07-18] MEDS: AMMONIUM LACTATE 12% LOTION 225 GM BTL EXT SCH (20:55)
[2021-07-18] MEDS: DOXYCYCLINE HYCLATE 100 MG CAP PO SCH (20:56)
[2021-07-18] MEDS ORDERED: SODIUM CHLORIDE 0.9% 1000ML 1,000 ML IV ONE (20:59)
[2021-07-18] MEDS: INSULIN GLARGINE SOLOSTAR 100 UNITS/ML 3 ML PEN SC SCH (21:08)
[2021-07-18] MEDS ORDERED: ENOXAPARIN INJ 40 MG/0.4 ML SYR SQ SCH (22:00)
[2021-07-19] MEDS ORDERED: INSULIN GLARGINE SOLOSTAR 100 UNITS/ML 3 ML PEN SC ONE
[2021-07-19 00:29] LABS: Partial Thromboplastin Ratio 1.3; Partial Thromboplastin Time 33.9 Seconds (21.0-31.0)
[2021-07-19] MEDS ORDERED: HEPARIN SOD (PORCINE) 1000 UNIT/ML IV STA (01:00)
[2021-07-19] MEDS: LEVOTHYROXINE SODIUM 100 MCG TABLET PO SCH (04:35)
[2021-07-19] MEDS: INSULIN ASPART 100 UNITS/ML 3 ML PEN SC SCH ×5 (04:36→21:29)
[2021-07-19] MEDS: HEPARIN SODIUM/DEXTROSE 25,000 UNITS/500 ML BAG IV SCH ×2 (04:36→13:54)
[2021-07-19] MEDS: ALBUTEROL 0.083% NEBU SOLN 3 ML VIAL NEB PRN ×2 (05:03→17:29)
--- NOTE | 2021-07-19 05:51 | Electrocardiogram Report ---
Test Reason : Blood Pressure : / mmHG Vent. Rate : 126 BPM Atrial Rate : 126 BPM P-R Int : 138 ms QRS Dur : 100 ms QT Int : 320 ms P-R-T Axes : 047 084 024 degrees QTc Int : 463 ms Poor data quality, interpretation may be adversely affected Sinus tachycardia Possible Left atrial enlargement Borderline ECG No previous ECGs available Confirmed by Aris Arrieta ([id number]) on 07/19/2021 5:51:43 AM Referred By: REFERRED SELF Confirmed By:Aris Arrieta
[2021-07-19 07:53] LABS: Basophils # (auto) 0.03 K/uL (0-0.2); Basophils % (auto) 0.2 %; Eosinophils % (auto) 1.5 %; Hematocrit (blood only) 43.1 % (42-52); Hemoglobin 14.6 g/dL (14.0-18.0); Immature Granulocytes # (auto) 0.15 K/uL (0.00-0.02); Immature Granulocytes % (auto) 1.2 %; Lymphocytes # (auto) 2.91 K/uL (1.2-3.4); Lymphocytes % (auto) 22.4 %; Mean Corpuscular Hemoglobin 28.4 pg (25-34); Mean Corpuscular Hgb Conc 33.9 g/dL (32-36); Mean Corpuscular Volume 83.9 fL (80-100); Mean Platelet Volume 10.7 fL (7.4-10.4); Monocytes # (auto) 1.16 K/uL (0.11-0.59); Monocytes % (auto) 8.9 %; Neutrophils # (auto) 8.53 K/uL (1.4-6.5); Neutrophils % (auto) 65.8 %; Platelet Count 246 K/uL (130-400); RDW Coefficient of Variation 14.9 % (11.5-14.5); RDW Standard Deviation 44.5 fL (36.4-46.3); Red Blood Count 5.14 M/uL (4.7-6.1); White Blood Count 12.98 K/uL (4.8-10.8)
[2021-07-19 07:57] LABS: Estimated Average Glucose 272 mg/dl; Hemoglobin A1C 11.1 % (4.5-5.6)
[2021-07-19 08:12] LABS: Partial Thromboplastin Ratio 1.8
[2021-07-19 08:24] LABS: Albumin Level 3.1 gm/dl (3.4-5.0); BUN Creatinine Ratio 25.4 (10-20); Calcium 9.2 mg/dl (8.5-10.1); Creatinine Clr Calc Pharmacy 110.8 ml/min; Est GFR (African American) 70.9 ml/min; Est GFR (Non-African American) 61.2 ml/min; Magnesium 1.7 mg/dl (1.8-2.4); Potassium 3.8 mmol/L (3.5-5.1)
[2021-07-19] MEDS: CEFEPIME 2,000 MG in SYRINGE 0 ML IV SCH ×2 (08:24→17:11)
[2021-07-19] MEDS: DOXYCYCLINE HYCLATE 100 MG CAP PO SCH ×2 (08:25→21:28)
[2021-07-19] MEDS: INSULIN GLARGINE SOLOSTAR 100 UNITS/ML 3 ML PEN SC SCH ×2 (08:25→21:29)
[2021-07-19] MEDS: AMMONIUM LACTATE 12% LOTION 225 GM BTL EXT SCH ×2 (08:25→21:28)
[2021-07-19 08:34] LABS: Albumin Globulin Ratio 0.7 (0.9-2); Bilirubin,Total 0.8 mg/dl (0.2-1); Globulin 4.3 gm/dl (2.5-4.0); Thyroid Stimulating Hormone 1.89 uIu/ml (0.300-4.500); Total Protein 7.4 gm/dl (6.4-8.2)
[2021-07-19 08:56] LABS: Partial Thromboplastin Time 46.8 Seconds (21.0-31.0)
[2021-07-19] MEDS ORDERED: MAGNESIUM SULFATE / D5W 1 GM/100 ML BAG IV ONE (09:30)
[2021-07-19] MEDS: ATORVASTATIN 20 MG TAB PO SCH (10:57)
[2021-07-19] MEDS: CYANOCOBALAMIN 500 MCG TABLET (VITAMIN B-12) PO SCH (10:58)
[2021-07-19] MEDS: MULTIVITAMIN TAB PO SCH (10:58)
--- NOTE | 2021-07-19 12:21 | Pharmacy Report ---
Pharmacy Glycemic Short Note 2 - Date of Service July 19, 2021 - Glycemic Short BSG Results (Last 24 hours): 07/18/21 07/18/21 07/18/21 12:26 16:16 16:17 Glucose POC Glucose 384 H* 328 H* 408 H* 07/18/21 07/18/21 07/18/21 16:21 16:43 21:01 Glucose 344 H* POC Glucose 349 H* 319 H* 07/18/21 07/18/21 07/19/21 21:02 23:40 04:32 Glucose POC Glucose 315 H* 242 H 216 H 07/19/21 07/19/21 07/19/21 07:09 07:27 11:05 Glucose 224 H POC Glucose 226 H 262 H OUTPATIENT ANTIDIABETIC REGIMEN: * Tresiba 45 units BID * Novolog 30 units AC * Metformin 1000mg PO BID * A1c 11% 07/19/21 ASSESSMENT: * 50 yo M admitted with acute hypoxic respiratory failure secondary to left lower lobe pneumonia, obese, uncontrolled type 2 DM, hyperglycemic on arrival, given 2 doses of 10 units IV insulin and started on basal bolus last evening. * Patient had 123 units of insulin as inpatient yesterday, 45 basal, 78 bolus. * Blood sugars have improved but are still in the low 200s, increased basal and tightened NovoLog parameters significantly this morning. * Continue to titrate to goal blood sugar. PLAN FOR INPATIENT GLYCEMIC CONTROL: * Hold outpatient oral diabetes medications * Basal insulin * Lantus 45-60 units SQ BID (45 units BSG < 180, 60 units for BSG 180 or greater) * Bolus insulin * NovoLog per scale ACHS or Q6hrs while NPO * Goal Range: Low 110 mg/dL - High 140 mg/dL * Correction Factor: 8 mg/dL/unit * Nutritional / Prandial insulin per carb ratio of 1 unit per 2 grams CHO consumed PLAN FOR DISCHARGE: * A1c 11.1%, to be determined
--- NOTE | 2021-07-19 13:24 | Cardiology Progress Note ---
Date of Service July 19, 2021 Assessment & Plan (1) Acute respiratory failure with hypoxia: (2) Pneumonia involving left lung: (3) Morbid obesity: (4) Elevated brain natriuretic peptide (BNP) level: (5) Elevated troponin: (6) EDITH (acute kidney injury): Plan: Positive fluid balance noted due to IV therapies and oral intake. Recommend Lasix 20 mg x 1 now. Continue to follow daily weight, urine output, GFR, and electrolytes. Antibiotics as per internal medicine. IV heparin ordered for treatment of popliteal venous thrombosis. Mildly elevated troponin secondary to hypoxia in the setting of community- acquired pneumonia. Admission and Anticipated Discharge Date Admission Date: July 18, 2021 Subjective Patient seen and examined the bedside. Respiratory status improving. Fluid balance +1.3 L secondary to IV therapies and oral intake. Serum creatinine improved. Denies chest pain or palpitations. Wearing Ventimask due to nasal congestion. Notes cough with out sputum production. Orthopnea and lower extremity edema unchanged. Review of Systems Review of Systems: All systems reviewed & are unremarkable except as noted in Subjective Physical Exam Constitutional: well nourished and + obese; no acute distress Respiratory: no retractions Auscultation: + crackles (Left lower and middle lung field crackles); no rhonchi and no wheezes Cardiovascular: Rate/Rhythm: regular rate, regular rhythm and + tachycardic Heart Sounds: normal S1 and normal S2; no murmur Extremities: + edema (Trace to mild bilateral pedal and ankle edema with stasis changes. ) Gastrointestinal (Abdomen): Inspection/Auscultation: abdomen normal to inspection and normal bowel sounds; abdomen not distended and no abdominal edema Percussion/Palpation: abdomen soft; abdomen nontender, no guarding and abdomen not rigid Neurologic: CN's II-XI intact bilaterally and moves all extremities; no focal motor deficits Motor/Sensory: no tremor Psychiatric: A+Ox3, euthymic affect Results & Data ([facility]) Vital Signs (Past 12 Hours) Vital Signs Temp Pulse Pulse Resp BP BP Pulse Ox 07/19/21 11:08 36.6 C 64 26 H 128/90 94 07/19/21 08:00 90 07/19/21 06:46 36.8 C 94 H 22 132/83 95 07/19/21 05:06 101 H 20 96 07/19/21 03:05 36.9 C 99 H 22 116/85 95 (1) Pneumonia involving left lung Lung location: unspecified part of lung Pneumonia type: due to unspecified organism Qualified Code(s): J18.9 - Pneumonia, unspecified organism
[2021-07-19] MEDS ORDERED: FUROSEMIDE 20 MG in SYRINGE 0 ML IV ONE (13:30)
--- NOTE | 2021-07-19 14:07 | Hospitalist Progress Note ---
Date of Service July 19, 2021 Assessment & Plan (1) Sepsis: Plan: Sepsis secondary to left lower lobe pneumonia-resuscitated, continue plan per below. (2) Acute respiratory failure with hypoxia: Plan: Acute respiratory failure with hypoxia likely secondary to pneumonia. However, in the setting of acute lower extremity DVT, pulmonary embolus is a possibility. Obtaining a CT with contrast of the chest was not ideal yesterday given the ongoing Metformin use and lactic acidosis. Today, it will not change our management. I discussed this with the patient and he is fine without the CT of the chest. (3) Pneumonia involving left lung: Plan: Continues on antibiotics including cefepime and doxycycline pending clinical improvement and negative culture results. The patient is notably a non-smoker. COVID-19 PCR is negative. Viral etiology is possible, however, will defer bio fire panel at this time as patient is improving on antibiotics. Aspiration does not seem likely in this 50-year-old alert and oriented patient. Consider Pneumovax vaccine if not given previously, prior to discharge. (4) Acute deep vein thrombosis of left lower extremity: Plan: Continue heparin drip with transition to NOAC prior to discharge. Would consider this a provoked DVT given the recent infections including herpes zoster and pneumonia. He has no history of blood clot in the past and would denies a family history of blood clots. (5) EDITH (acute kidney injury): Plan: EDITH likely secondary to sepsis and dehydration from recent illnesses, improved after resuscitation efforts overnight. (6) Shingles rash: Plan: Patient completed a 7-day course of antiviral therapy and rash is healing nicely. Continue supportive therapies, currently he declines any gabapentin. Would avoid any external creams at this point given the lesions are still slightly open. Continue isolation precautions (7) Hypertension: Plan: Blood pressure at goal. Lisinopril HCTZ was held in the setting of sepsis on admission. Consider restarting in a.m. (8) Elevated troponin: Plan: Mild elevation overnight that is descending. Likely secondary to demand ischemia in setting of sepsis. Patient denies any chest pain and was evaluated by cardiology. No ACS and echo was performed with no regional wall motion abnormalities. (9) Uncontrolled type II diabetes mellitus: Plan: Hyperglycemia this admission, insulin managed by glycemic pharmacist. Changes have been made this morning to continue efforts to get him within range. He remains slightly above 200 at this point. Continue basal bolus insulin per glycemic pharmacist. Monitor for discharge recommendations with uncontrolled A1c. Of 11.1 this admission. Goal A1c would be less than 7. Continue to work with outpatient provider to meet this goal. (10) Morbid obesity: Plan: Lifestyle changes recommended to decrease percent body fat and increased lean muscle mass for overall health. (11) DVT prophylaxis: Plan: Heparin drip Full code Disposition-to home when off oxygen and medically stable. Ledy Horne DO [facility] Admission and Anticipated Discharge Date Admission Date: July 18, 2021 Subjective Patient is a 50-year-old obese man presenting with a healing shingles infection and sepsis secondary to pneumonia. He reports improvement with treatment overnight. He does report aggressive coughing fits but denies any need for cough syrup at this time. He did show me some productive sputum which were. Greenish in color. He denies any fevers or chills overnight and is tolerating p.o. He understands there is a DVT in his left leg and reports some swelling in his left foot. He reports some persistent burning pain in his rash area, however this is improved and he denies any need for further gabapentin at this time. Review of Systems Review of Systems: At least ten systems were reviewed and negative except as indicated in HPI above. Physical Exam Physical Exam: CONSTITUTIONAL: WNWD, vitals as above, generally well- appearing EYES: normal conjunctivae, no scleral icterus ENT: external ear and nose normal, MMM NECK: trachea midline, no lymphadenopathy, normal thyroid RESPIRATORY: clear to auscultation bilaterally, no crackles, rales or wheezes, normal respiratory effort CARDIOVASCULAR: regular rate and rhythm, S1 and 2 heard without murmurs, gallops or rubs, no JVD, no peripheral edema CHEST: inspection of chest was normal GASTROINTESTINAL: protuberant, obese abdomen, soft, nontender, nondistended, no guarding MUSCULOSKELETAL: strength 5/5 throughout, head is normocephalic and atraumatic SKIN: warm and dry, well-healing vesicular rash in right L4-L5 dermatomal distribution extending from posterior lateral gluteus around to right inguinal area NEUROLOGIC: CN 2-12 grossly intact, no sensory deficit, normal cognition, normal speech, no tremor, no gross focal deficits. PSYCHIATRIC: alert cooperative and oriented to person, place and time. Euthymic mood, makes good eye contact, language grossly intact, recent and remote memory grossly intact. Results & Data Results & Data ([facility]) Vital Signs (Past 12 Hours) Vital Signs Temp Pulse Pulse Resp BP BP Pulse Ox 07/19/21 11:08 36.6 C 64 26 H 128/90 94 07/19/21 08:00 90 07/19/21 06:46 36.8 C 94 H 22 132/83 95 07/19/21 05:06 101 H 20 96 07/19/21 03:05 36.9 C 99 H 22 116/85 95 Laboratory Results Short CBC 07/19/21 Range/Units 07:27 WBC 12.98 H (4.8-10.8) K/uL Hgb 14.6 (14.0-18.0) g/dL Hct 43.1 (42-52) % Plt Count 246 (130-400) K/uL BMP 07/18/21 07/19/21 16:43 07:27 Sodium 137 137 Potassium 3.8 3.8 Chloride 105 106 Carbon Dioxide 24 23 BUN 31 H 34 H Creatinine 1.56 H 1.35 Glucose 344 H* 224 H Calcium 9.4 9.2 Cardiac Enzymes 07/18/21 07/19/21 Range/Units 16:43 00:09 Troponin I 0.097 H* 0.076 H* (0-0.045) ng/ml Liver Function 07/19/21 Range/Units 07:27 Total Bilirubin 0.8 (0.2-1) mg/dl AST 17 (15-37) U/L ALT 28 (12-78) U/L Alkaline Phosphatase 61 (45-117) U/L Albumin 3.1 L (3.4-5.0) gm/dl Medications Administered Current Inpatient Medications Acetaminophen (Acetaminophen 325 Mg Tab) 650 mg PO Q4H PRN PRN Reason: Pain or Fever Stop: 08/17/21 15:21 Al Hydrox/Mg Hydrox/Simethicone (Aluminum/Magnesium Susp 30 Ml Udc) 15 ml PO Q4H PRN PRN Reason: Dyspepsia Stop: 08/17/21 15:21 Albuterol (Albuterol 0.083% Nebu Soln 3 Ml Vial) 2.5 mg NEB Q6R PRN PRN Reason: sob Stop: 08/17/21 15:21 Last Admin: 07/19/21 05:03 Dose: 2.5 mg Documented by: Atorvastatin Calcium (Atorvastatin 20 Mg Tab) 20 mg PO QDL [facility] Stop: 08/18/21 11:29 Last Admin: 07/19/21 10:57 Dose: 20 mg Documented by: Cyanocobalamin (Cyanocobalamin 500 Mcg Tablet (Vitamin B-12)) 1,000 mcg PO QDL [facility] Stop: 08/18/21 11:29 Last Admin: 07/19/21 10:58 Dose: 1,000 mcg Documented by: Dextrose (Dextrose 50% 50 Ml Syringe) 25 - 50 ml IV UD PRN; Protocol PRN Reason: Hypoglycemia Protocol Stop: 08/17/21 15:21 Doxycycline Hyclate (Doxycycline Hyclate 100 Mg Cap) 100 mg PO BID [facility] Stop: 07/25/21 20:59 Last Admin: 07/19/21 08:25 Dose: 100 mg Documented by: Glucagon (Glucagon For Inj 1 Mg Vial) 1 mg SQ UD PRN; Protocol PRN Reason: Hypoglycemia Protocol Stop: 08/17/21 15:21 Glucose (Glucose 10 Tabs/Tube) 4 - 8 tabs PO UD PRN; Protocol PRN Reason: Hypoglycemia Protocol Stop: 08/17/21 15:21 Glucose (Glucose 40% Gel 15 Gm Tube) 15 - 30 gm PO UD PRN; Protocol PRN Reason: Hypoglycemia Protocol Stop: 08/17/21 15:21 Heparin Sodium/Dextrose (Heparin Sodium/Dextrose) 25,000 units in 500 mls @ 48 mls/hr IV .[id number] [facility]; Protocol Stop: 08/17/21 15:59 Last Admin: 07/19/21 13:54 Dose: 2,400 units/hr, 48 mls/hr Documented by: Cefepime HCl 2,000 mg/ Syringe 20 mls @ 5 mls/min IV Q8H [facility]; Protocol Stop: 07/25/21 15:59 Last Admin: 07/19/21 08:24 Dose: 5 mls/min Documented by: Insulin Aspart (Insulin Aspart 100 Units/Ml 3 Ml Pen) 0 units SC ACHS [facility] Stop: 08/17/21 16:29 Last Admin: 07/19/21 12:14 Dose: 36 units Documented by: Insulin Glargine (Insulin Glargine Solostar 100 Units/Ml 3 Ml Pen) 0 units SC BID [facility]; Protocol Stop: 08/17/21 20:59 Last Admin: 07/19/21 08:25 Dose: 60 units Documented by: Lactic Acid (Ammonium Lactate 12% Lotion 225 Gm Btl) 1 gm EXT BID [facility] Stop: 08/17/21 20:59 Last Admin: 07/19/21 08:25 Dose: Not Given Documented by: Levothyroxine Sodium (Levothyroxine Sodium 100 Mcg Tablet) 100 mcg PO DAILYBB [facility] Stop: 08/18/21 06:29 Last Admin: 07/19/21 04:35 Dose: 100 mcg Documented by: Magnesium Hydroxide (Magnesium Hydroxide Susp 30 Ml Udc) 30 ml PO Q12H PRN PRN Reason: Constipation Stop: 08/17/21 15:21 Miscellaneous (Carbohydrates For Hypoglycemia ) 15 - 30 gm PO UD PRN PRN Reason: Hypoglycemia Protocol Stop: 08/17/21 15:21 Miscellaneous Information (Pharmacy Glycemic Mgmt Consult) 1 ea N/A UD PRN; Protocol PRN Reason: Consult Stop: 08/17/21 15:21 Miscellaneous Information (Cefepime Consult Active) 0 ea N/A UD PRN PRN Reason: Consult Stop: 08/17/21 15:21 Multivitamins (Multivitamin Tab) 1 tab PO QDL [facility] Stop: 08/18/21 11:29 Last Admin: 07/19/21 10:58 Dose: 1 tab Documented by: Ondansetron HCl (Ondansetron Inj 2 Mg/Ml 2 Ml Vial) 4 mg IV Q6H PRN PRN Reason: Nausea Stop: 08/17/21 15:21 Polyethylene Glycol (Polyethylene (Miralax) 17 Gm Pack) 17 gm PO DAILY PRN PRN Reason: Constipation Stop: 08/17/21 15:21 (1) Pneumonia involving left lung Lung location: unspecified part of lung Pneumonia type: due to unspecified organism Qualified Code(s): J18.9 - Pneumonia, unspecified organism
[2021-07-20] MEDS: CEFEPIME 2,000 MG in SYRINGE 0 ML IV SCH ×3 (00:18→16:15)
[2021-07-20] MEDS: HEPARIN SODIUM/DEXTROSE 25,000 UNITS/500 ML BAG IV SCH ×7 (00:19→20:38)
[2021-07-20] MEDS: LEVOTHYROXINE SODIUM 100 MCG TABLET PO SCH (05:49)
[2021-07-20 06:00] LABS: Hematocrit (blood only) 40.9 % (42-52); Hemoglobin 13.5 g/dL (14.0-18.0); Mean Corpuscular Hemoglobin 28.4 pg (25-34); Mean Corpuscular Volume 85.9 fL (80-100); Mean Platelet Volume 10.8 fL (7.4-10.4); Platelet Count 236 K/uL (130-400); RDW Coefficient of Variation 14.8 % (11.5-14.5); RDW Standard Deviation 45.7 fL (36.4-46.3); Red Blood Count 4.76 M/uL (4.7-6.1); White Blood Count 13.48 K/uL (4.8-10.8)
[2021-07-20 06:14] LABS: Partial Thromboplastin Ratio 1.6; Partial Thromboplastin Time 43.3 Seconds (21.0-31.0)
[2021-07-20 06:29] LABS: BUN Creatinine Ratio 24.1 (10-20); Calcium 8.8 mg/dl (8.5-10.1); Creatinine Clr Calc Pharmacy 118.2 ml/min; Est GFR (African American) 67.3 ml/min; Est GFR (Non-African American) 58.1 ml/min; Potassium 3.4 mmol/L (3.5-5.1)
[2021-07-20] MEDS: INSULIN ASPART 100 UNITS/ML 3 ML PEN SC SCH ×4 (08:29→20:54)
[2021-07-20] MEDS: AMMONIUM LACTATE 12% LOTION 225 GM BTL EXT SCH ×2 (08:30→20:45)
[2021-07-20] MEDS: DOXYCYCLINE HYCLATE 100 MG CAP PO SCH ×2 (08:30→20:48)
[2021-07-20] MEDS: INSULIN GLARGINE SOLOSTAR 100 UNITS/ML 3 ML PEN SC SCH ×2 (08:32→20:55)
[2021-07-20] MEDS: LISINOPRIL/HCTZ 20/25MG 1 TAB PO SCH (08:32)
--- NOTE | 2021-07-20 09:37 | XRay Report ---
XR chest 1V portable HISTORY: Left lower lobe pneumonia. Follow-up. COMPARISON: Chest 07/18/2021. FINDINGS: No pneumothorax. No pleural fusions. The cardiac silhouette remains mildly enlarged. Decrea se in size in the left midlung zone airspace opacity. Suspect a patchy density within the right lung base. IMPRESSION: Decrease in size in the left midlung zone airspace opacity. Faint patchy density within the right christopher g base persist ACT 112: Negative or not required by law. Electronically signed by: Kenneth Hicks M.D. 07/20/2021 9:35 AM
[2021-07-20] MEDS: ALBUTEROL 0.083% NEBU SOLN 3 ML VIAL NEB PRN (10:37)
[2021-07-20] MEDS: MULTIVITAMIN TAB PO SCH (10:50)
[2021-07-20] MEDS: ATORVASTATIN 20 MG TAB PO SCH (10:51)
[2021-07-20] MEDS: CYANOCOBALAMIN 500 MCG TABLET (VITAMIN B-12) PO SCH (10:51)
[2021-07-20] MEDS ORDERED: POLYETHYLENE (MIRALAX) 17 GM PACK PO STA (12:29)
[2021-07-20] MEDS ORDERED: bisacodyL 5 MG TABEC PO ONE (12:30)
[2021-07-20] MEDS ORDERED: WARFARIN SOD 10 MG TAB PO ONE (12:30)
[2021-07-20 12:51] LABS: Partial Thromboplastin Ratio 1.6; Partial Thromboplastin Time 42.9 Seconds (21.0-31.0)
--- NOTE | 2021-07-20 12:58 | Cardiology Progress Note ---
Date of Service July 20, 2021 Assessment & Plan (1) Acute respiratory failure with hypoxia: (2) Pneumonia involving left lung: (3) Morbid obesity: (4) Elevated brain natriuretic peptide (BNP) level: (5) Elevated troponin: (6) EDITH (acute kidney injury): Plan: Respiratory status improved. Patient does not appear volume overloaded. No medication changes today. Antibiotics as per internal medicine. IV heparin ordered for treatment of popliteal venous thrombosis. Mildly elevated troponin secondary to hypoxia in the setting of community- acquired pneumonia. No further inpatient cardiac testing or intervention. Cardiology will sign off. Please call with any further concerns/questions. Admission and Anticipated Discharge Date Admission Date: July 18, 2021 Subjective Patient seen and examined at bedside. Respiratory status improved. Satting 94% on room air today. Chest x-ray demonstrates improvement as well. Denies orthopnea or PND. No chest pain, palpitations, lightheadedness, or dizziness. Telemetry reveals sinus rhythm. No new concerns/complaints today. Review of Systems Review of Systems: All systems reviewed & are unremarkable except as noted in Subjective Physical Exam Constitutional: well nourished and + obese; no acute distress Respiratory: no retractions Auscultation: + crackles (Left lower and middle lung field crackles); no rhonchi and no wheezes Cardiovascular: Rate/Rhythm: regular rate, regular rhythm and + tachycardic Heart Sounds: normal S1 and normal S2; no murmur Extremities: + edema (Trace to mild bilateral pedal and ankle edema with stasis changes. ) Gastrointestinal (Abdomen): Inspection/Auscultation: abdomen normal to inspection and normal bowel sounds; abdomen not distended and no abdominal edema Percussion/Palpation: abdomen soft; abdomen nontender, no guarding and abdomen not rigid Neurologic: CN's II-XI intact bilaterally and moves all extremities; no focal motor deficits Motor/Sensory: no tremor Psychiatric: A+Ox3, euthymic affect Results & Data ([facility]) Vital Signs (Past 12 Hours) Vital Signs Temp Pulse Pulse Resp BP BP Pulse Ox 07/20/21 11:27 36.9 C 90 20 116/75 94 07/20/21 10:37 98 H 16 98 07/20/21 08:00 79 07/20/21 07:23 36.9 C 85 20 133/86 98 09/03/21 03:09 36.8 C 80 16 137/85 96 (1) Pneumonia involving left lung Lung location: unspecified part of lung Pneumonia type: due to unspecified organism Qualified Code(s): J18.9 - Pneumonia, unspecified organism
--- NOTE | 2021-07-20 17:17 | Hospitalist Progress Note ---
Date of Service July 20, 2021 Assessment & Plan (1) Sepsis: Plan: Sepsis secondary to left lower lobe pneumonia-resuscitated, continue plan per below. Remains asymptomatic without any cough and/or shortness of breath Continue current management (2) Acute respiratory failure with hypoxia: Plan: Acute respiratory failure with hypoxia likely secondary to pneumonia. However, in the setting of acute lower extremity DVT, pulmonary embolus is a possibility. Obtaining a CT with contrast of the chest was not ideal yesterday given the ongoing Metformin use and lactic acidosis. Today, it will not change our management. I discussed this with the patient and he is fine without the CT of the chest. No more shortness of breath and has been saturating well with room air (3) Pneumonia involving left lung: Plan: Continues on antibiotics including cefepime and doxycycline pending clinical improvement and negative culture results. The patient is notably a non-smoker. COVID-19 PCR is negative. Aspiration does not seem likely in this 50-year-old alert and oriented patient. Consider Pneumovax vaccine if not given previously, prior to discharge. We will change antibiotic to oral and finish the course of 7 days of antibiotic (4) Acute deep vein thrombosis of left lower extremity: Plan: Continue heparin drip with transition to NOAC prior to discharge. Would consider this a provoked DVT given the recent infections including herpes zoster and pneumonia. He has no history of blood clot in the past and would denies a family history of blood clots. No acute contraindicated-discussed with the pharmacist We will start Coumadin and Lovenox Discharge tomorrow Coumadin has been continued for about 3 months (5) EDITH (acute kidney injury): Plan: EDITH likely secondary to sepsis and dehydration from recent illnesses, improved after resuscitation efforts overnight. Creatinine remains stable at 1.4 on (6) Shingles rash: Plan: Patient completed a 7-day course of antiviral therapy and rash is healing nicely. Continue supportive therapies, currently he declines any gabapentin. Would avoid any external creams at this point given the lesions are still slightly open. Continue isolation precautions-we will DC if there is no scales (7) Hypertension: Plan: Blood pressure at goal. Lisinopril HCTZ was held in the setting of sepsis on admission. We will restart on discharge (8) Elevated troponin: Plan: Mild elevation overnight that is descending. Likely secondary to demand ischemia in setting of sepsis. Patient denies any chest pain and was evaluated by cardiology. No ACS and echo was performed with no regional wall motion abnormalities. (9) Uncontrolled type II diabetes mellitus: Plan: Hyperglycemia this admission, insulin managed by glycemic pharmacist. Changes have been made this morning to continue efforts to get him within range. He remains slightly above 200 at this point. Continue basal bolus insulin per glycemic pharmacist. Monitor for discharge recommendations with uncontrolled A1c. Of 11.1 this admission. Goal A1c would be less than 7. Continue to work with outpatient provider to meet this goal. (10) Morbid obesity: Plan: Lifestyle changes recommended to decrease percent body fat and increased lean muscle mass for overall health. (11) DVT prophylaxis: Plan: Heparin drip-changed to Lovenox subcu and added Coumadin Full code Disposition-to home when off oxygen and medically stable. Likely discharge tomorrow. Admission and Anticipated Discharge Date Admission Date: July 18, 2021 Subjective 07/20/2021 The patient was seen and examined in telemetry unit He has been feeling much better and wants to go home Denies any chest pain, palpitation or shortness of breath Denies any leg pain Review of Systems Review of Systems: All systems reviewed and are unremarkable except as noted below Physical Exam Physical Exam: Sitting at the edge of the bed without any acute distress Constitutional: well developed, well nourished and + obese Eyes: PERRL, conjunctivae normal, anicteric sclerae ENMT: external ear and nose normal, oropharynx normal Neck: trachea midline, no thyromegaly Respiratory: no respiratory distress Auscultation: lungs clear to auscultation bilaterally; no crackles and no wheezes Cardiovascular: Rate/Rhythm: regular rate and regular rhythm; not tachycardic Heart Sounds: normal S1 and normal S2; no murmur Extremities: + edema (1+ edema bilaterally with chronic skin changes both the legs) Gastrointestinal (Abdomen): Inspection/Auscultation: + abdomen distended and normal bowel sounds Percussion/Palpation: abdomen soft; abdomen nontender Musculoskeletal: No acute arthritis in any joint Neurologic: Alert, awake and oriented x3. No focal sensory and motor deficit appreciated Results & Data Results & Data ([facility]) Vital Signs (Past 12 Hours) Vital Signs Temp Pulse Pulse Resp BP Pulse Ox 07/20/21 15:52 36.5 C 94 H 20 143/87 H 98 07/20/21 15:32 90 09/03/21 11:27 36.9 C 90 20 116/75 94 07/20/21 10:37 98 H 16 98 07/20/21 08:00 79 07/20/21 07:23 36.9 C 85 20 133/86 98 Laboratory Results Short CBC 07/20/21 Range/Units 05:30 WBC 13.48 H (4.8-10.8) K/uL Hgb 13.5 L (14.0-18.0) g/dL Hct 40.9 L (42-52) % Plt Count 236 (130-400) K/uL BMP 07/20/21 05:30 Sodium 137 Potassium 3.4 L Chloride 105 Carbon Dioxide 26 BUN 34 H Creatinine 1.41 H Glucose 167 H Calcium 8.8 Medications Administered Current Inpatient Medications Acetaminophen (Acetaminophen 325 Mg Tab) 650 mg PO Q4H PRN PRN Reason: Pain or Fever Stop: 08/17/21 15:21 Al Hydrox/Mg Hydrox/Simethicone (Aluminum/Magnesium Susp 30 Ml Udc) 15 ml PO Q4H PRN PRN Reason: Dyspepsia Stop: 08/17/21 15:21 Albuterol (Albuterol 0.083% Nebu Soln 3 Ml Vial) 2.5 mg NEB Q6R PRN PRN Reason: sob Stop: 08/17/21 15:21 Last Admin: 07/20/21 10:37 Dose: 2.5 mg Documented by: Atorvastatin Calcium (Atorvastatin 20 Mg Tab) 20 mg PO QDL [facility]QUILES Stop: 08/18/21 11:29 Last Admin: 07/20/21 10:51 Dose: 20 mg Documented by: Cyanocobalamin (Cyanocobalamin 500 Mcg Tablet (Vitamin B-12)) 1,000 mcg PO QDL AQUILES Stop: 08/18/21 11:29 Last Admin: 07/20/21 10:51 Dose: 1,000 mcg Documented by: Dextrose (Dextrose 50% 50 Ml Syringe) 25 - 50 ml IV UD PRN; Protocol PRN Reason: Hypoglycemia Protocol Stop: 08/17/21 15:21 Doxycycline Hyclate (Doxycycline Hyclate 100 Mg Cap) 100 mg PO BID [facility]ILES Stop: 07/25/21 20:59 Last Admin: 07/20/21 08:30 Dose: 100 mg Documented by: Glucagon (Glucagon For Inj 1 Mg Vial) 1 mg SQ UD PRN; Protocol PRN Reason: Hypoglycemia Protocol Stop: 08/17/21 15:21 Glucose (Glucose 10 Tabs/Tube) 4 - 8 tabs PO UD PRN; Protocol PRN Reason: Hypoglycemia Protocol Stop: 08/17/21 15:21 Glucose (Glucose 40% Gel 15 Gm Tube) 15 - 30 gm PO UD PRN; Protocol PRN Reason: Hypoglycemia Protocol Stop: 08/17/21 15:21 Lisinopril/HCTZ (Lisinopril/Hctz 20/25mg 1 Tab) 1 tab PO QAM [facility] Stop: 08/19/21 08:59 Last Admin: 07/20/21 08:32 Dose: 1 tab Documented by: Heparin Sodium/Dextrose (Heparin Sodium/Dextrose) 25,000 units in 500 mls @ 52 mls/hr IV .Q9H37M [facility]; Protocol Stop: 08/17/21 15:59 Last Admin: 07/20/21 13:32 Dose: Not Given Documented by: Cefepime HCl 2,000 mg/ Syringe 20 mls @ 5 mls/min IV Q8H [facility]; Protocol Stop: 07/25/21 15:59 Last Admin: 07/20/21 16:15 Dose: 5 mls/min Documented by: Insulin Aspart (Insulin Aspart 100 Units/Ml 3 Ml Pen) 0 units SC ACHS [facility] Stop: 08/17/21 16:29 Last Admin: 07/20/21 12:03 Dose: 23 units Documented by: Insulin Glargine (Insulin Glargine Solostar 100 Units/Ml 3 Ml Pen) 0 units SC BID [facility]; Protocol Stop: 08/17/21 20:59 Last Admin: 07/20/21 08:32 Dose: 60 units Documented by: Lactic Acid (Ammonium Lactate 12% Lotion 225 Gm Btl) 1 gm EXT BID [facility] Stop: 08/17/21 20:59 Last Admin: 07/20/21 08:30 Dose: 1 gm Documented by: Levothyroxine Sodium (Levothyroxine Sodium 100 Mcg Tablet) 100 mcg PO DAILYBB [facility] Stop: 08/18/21 06:29 Last Admin: 07/20/21 05:49 Dose: 100 mcg Documented by: Magnesium Hydroxide (Magnesium Hydroxide Susp 30 Ml Udc) 30 ml PO Q12H PRN PRN Reason: Constipation Stop: 08/17/21 15:21 Miscellaneous (Carbohydrates For Hypoglycemia ) 15 - 30 gm PO UD PRN PRN Reason: Hypoglycemia Protocol Stop: 08/17/21 15:21 Miscellaneous Information (Pharmacy Glycemic Mgmt Consult) 1 ea N/A UD PRN; Protocol PRN Reason: Consult Stop: 08/17/21 15:21 Miscellaneous Information (Cefepime Consult Active) 0 ea N/A UD PRN PRN Reason: Consult Stop: 08/17/21 15:21 Multivitamins (Multivitamin Tab) 1 tab PO QDL [facility] Stop: 08/18/21 11:29 Last Admin: 07/20/21 10:50 Dose: 1 tab Documented by: Ondansetron HCl (Ondansetron Inj 2 Mg/Ml 2 Ml Vial) 4 mg IV Q6H PRN PRN Reason: Nausea Stop: 08/17/21 15:21 Polyethylene Glycol (Polyethylene (Miralax) 17 Gm Pack) 17 gm PO DAILY PRN PRN Reason: Constipation Stop: 08/17/21 15:21 Last Admin: 07/19/21 23:27 Dose: 17 gm Documented by: Warfarin Sodium (Warfarin Sod 10 Mg Tab) 10 mg PO DAILY@1600 [facility] Stop: 08/20/21 15:59 (1) Pneumonia involving left lung Lung location: unspecified part of lung Pneumonia type: due to unspecified organism Qualified Code(s): J18.9 - Pneumonia, unspecified organism
[2021-07-20 20:14] LABS: Partial Thromboplastin Ratio 1.7; Partial Thromboplastin Time 44.8 Seconds (21.0-31.0)
[2021-07-21] MEDS: CEFEPIME 2,000 MG in SYRINGE 0 ML IV SCH ×2 (01:00→08:43)
[2021-07-21 03:15] LABS: Basophils # (auto) 0.03 K/uL (0-0.2); Basophils % (auto) 0.3 %; Eosinophils # (auto) 0.31 K/uL (0-0.5); Eosinophils % (auto) 2.6 %; Hematocrit (blood only) 40.8 % (42-52); Hemoglobin 13.7 g/dL (14.0-18.0); Immature Granulocytes # (auto) 0.12 K/uL (0.00-0.02); Lymphocytes # (auto) 2.45 K/uL (1.2-3.4); Lymphocytes % (auto) 20.9 %; Mean Corpuscular Hemoglobin 28.8 pg (25-34); Mean Corpuscular Hgb Conc 33.6 g/dL (32-36); Mean Corpuscular Volume 85.7 fL (80-100); Mean Platelet Volume 10.9 fL (7.4-10.4); Monocytes # (auto) 1.14 K/uL (0.11-0.59); Monocytes % (auto) 9.7 %; Neutrophils # (auto) 7.67 K/uL (1.4-6.5); Neutrophils % (auto) 65.5 %; Nucleated RBC # (auto) 0.02 K/uL (0-0); Nucleated RBC % (auto) 0.2 %; Platelet Count 248 K/uL (130-400); RDW Coefficient of Variation 14.8 % (11.5-14.5); RDW Standard Deviation 45.7 fL (36.4-46.3); Red Blood Count 4.76 M/uL (4.7-6.1); White Blood Count 11.72 K/uL (4.8-10.8)
[2021-07-21 03:33] LABS: BUN Creatinine Ratio 21.7 (10-20); Calcium 8.8 mg/dl (8.5-10.1); Creatinine Clr Calc Pharmacy 131.2 ml/min; Est GFR (African American) 76.4 ml/min; Est GFR (Non-African American) 65.9 ml/min; Magnesium 2.2 mg/dl (1.8-2.4); Potassium 3.4 mmol/L (3.5-5.1)
[2021-07-21 03:37] LABS: INR 1.1 (0.9-1.1); Partial Thromboplastin Ratio 1.9
[2021-07-21 03:42] LABS: Partial Thromboplastin Time 49.6 Seconds (21.0-31.0)
[2021-07-21] MEDS: HEPARIN SODIUM/DEXTROSE 25,000 UNITS/500 ML BAG IV SCH ×2 (06:36→08:12)
[2021-07-21] MEDS: LEVOTHYROXINE SODIUM 100 MCG TABLET PO SCH (06:39)
[2021-07-21] MEDS: INSULIN ASPART 100 UNITS/ML 3 ML PEN SC SCH ×2 (08:37→11:43)
[2021-07-21] MEDS: INSULIN GLARGINE SOLOSTAR 100 UNITS/ML 3 ML PEN SC SCH (08:38)
[2021-07-21] MEDS: LISINOPRIL/HCTZ 20/25MG 1 TAB PO SCH (08:43)
[2021-07-21] MEDS: DOXYCYCLINE HYCLATE 100 MG CAP PO SCH (08:43)
[2021-07-21] MEDS: AMMONIUM LACTATE 12% LOTION 225 GM BTL EXT SCH (08:44)
[2021-07-21] MEDS ORDERED: ENOXAPARIN INJ 40 MG/0.4 ML SYR SQ SCH (10:00)
[2021-07-21] MEDS ORDERED: ENOXAPARIN 150 MG/ML SYR SQ SCH (10:00)
[2021-07-21] MEDS: MULTIVITAMIN TAB PO SCH (11:48)
[2021-07-21] MEDS: CYANOCOBALAMIN 500 MCG TABLET (VITAMIN B-12) PO SCH (11:48)
[2021-07-21] MEDS: ATORVASTATIN 20 MG TAB PO SCH (11:49)
--- NOTE | 2021-07-21 13:04 | Pharmacy Report ---
Pharmacy Glycemic Short Note 2 - Date of Service July 21, 2021 - Glycemic Short BSG Results (Last 24 hours): 07/20/21 07/20/21 07/20/21 13:56 16:31 20:34 Glucose POC Glucose 196 H 171 H 171 H 07/21/21 07/21/21 07/21/21 03:03 07:38 11:33 Glucose 154 H POC Glucose 168 H 140 H OUTPATIENT ANTIDIABETIC REGIMEN: * Tresiba 45 units BID * Novolog 30 units AC * Metformin 1000mg PO BID * A1c 11% 07/19/21 ASSESSMENT: 07/21/21 * Patient's BSGs yesterday were [phone] mg/dL. Patient received 184 units of insulin yesterday with 120 units of basal and 64 units of bolus. * Today's fasting BSG was 168 mg/dL. * Continue Lantus 60 units BID. * Tighten CF as BSGs trended upwards. BACKGROUND * 50 yo M admitted with acute hypoxic respiratory failure secondary to left lower lobe pneumonia, obese, uncontrolled type 2 DM, hyperglycemic on arrival, given 2 doses of 10 units IV insulin and started on basal bolus last evening. * Patient had 123 units of insulin as inpatient yesterday, 45 basal, 78 bolus. * Blood sugars have improved but are still in the low 200s, increased basal and tightened NovoLog parameters significantly this morning. * Continue to titrate to goal blood sugar. PLAN FOR INPATIENT GLYCEMIC CONTROL: * Hold outpatient oral diabetes medications * Basal insulin * Lantus 60 units SQ BID * Bolus insulin * NovoLog per scale ACHS or Q6hrs while NPO * Goal Range: Low 110 mg/dL - High 140 mg/dL * Correction Factor: 7 mg/dL/unit * Nutritional / Prandial insulin per carb ratio of 1 unit per 2.5 grams CHO consumed PLAN FOR DISCHARGE: * A1c 11.1% * Spoke with patient via telephone. He is aware that BSGs are elevated and was able to identify reasons for this. * He will follow-up with [facility] to work closely with them. Patient would prefer to NOT change insulin regimen at this time. * Provided handout with blood sugars and insulin doses. Copy sent to be scanned into chart.
--- NOTE | 2021-07-21 14:13 | Hospitalist Progress Note ---
Date of Service July 21, 2021 Assessment & Plan (1) Sepsis: Plan: Sepsis secondary to left lower lobe pneumonia-resuscitated, continue plan per below. Remains asymptomatic without any cough and/or shortness of breath Continue current management Antibiotics will be continued for 4 more days (2) Acute respiratory failure with hypoxia: Plan: Acute respiratory failure with hypoxia likely secondary to pneumonia. However, in the setting of acute lower extremity DVT, pulmonary embolus is a possibility. Obtaining a CT with contrast of the chest was not ideal yesterday given the ongoing Metformin use and lactic acidosis. Today, it will not change our management. I discussed this with the patient and he is fine without the CT of the chest. No more shortness of breath and has been saturating well with room air (3) Pneumonia involving left lung: Plan: Continues on antibiotics including cefepime and doxycycline pending clinical improvement and negative culture results. The patient is notably a non-smoker. COVID-19 PCR is negative. Aspiration does not seem likely in this 50-year-old alert and oriented patient. Consider Pneumovax vaccine if not given previously, prior to discharge. We will change antibiotic to oral and finish the course of 7 days of antibiotic He will have cefuroxime and doxycycline for 4 more days to finish the course (4) Acute deep vein thrombosis of left lower extremity: Plan: Continue heparin drip with transition to NOAC prior to discharge. Would consider this a provoked DVT given the recent infections including herpes zoster and pneumonia. He has no history of blood clot in the past and would denies a family history of blood clots. No acute contraindicated-discussed with the pharmacist We will start Coumadin and Lovenox Discharge tomorrow Coumadin has been continued for about 3 months Coumadin 7.5 mg daily has been given with Lovenox 190 mg subcu twice daily and he will have appointment with Coumadin clinic on seventh of this month (5) EDITH (acute kidney injury): Plan: EDITH likely secondary to sepsis and dehydration from recent illnesses, improved after resuscitation efforts overnight. Creatinine remains stable at 1.4 on (6) Shingles rash: Plan: Patient completed a 7-day course of antiviral therapy and rash is healing nicely. Continue supportive therapies, currently he declines any gabapentin. Would avoid any external creams at this point given the lesions are still slightly open. Continue isolation precautions-we will DC if there is no scales (7) Hypertension: Plan: Blood pressure at goal. Lisinopril HCTZ was held in the setting of sepsis on admission. We will restart on discharge (8) Elevated troponin: Plan: Mild elevation overnight that is descending. Likely secondary to demand ischemia in setting of sepsis. Patient denies any chest pain and was evaluated by cardiology. No ACS and echo was performed with no regional wall motion abnormalities. (9) Uncontrolled type II diabetes mellitus: Plan: Hyperglycemia this admission, insulin managed by glycemic pharmacist. Changes have been made this morning to continue efforts to get him within range. He remains slightly above 200 at this point. Continue basal bolus insulin per glycemic pharmacist. Monitor for discharge recommendations with uncontrolled A1c. Of 11.1 this admission. Goal A1c would be less than 7. Continue to work with outpatient provider to meet this goal. We will need to follow-up appointment with diabetic clinic (10) Morbid obesity: Plan: Lifestyle changes recommended to decrease percent body fat and increased lean muscle mass for overall health. (11) DVT prophylaxis: Plan: Heparin drip-changed to Lovenox subcu and added Coumadin Full code Disposition-to home when off oxygen and medically stable. Likely discharge tomorrow. Admission and Anticipated Discharge Date Admission Date: July 18, 2021 Subjective 07/20/2021 The patient was seen and examined in telemetry unit He has been feeling much better and wants to go home Denies any chest pain, palpitation or shortness of breath Denies any leg pain 07/21/2021 The patient was seen and examined in telemetry unit She has been feeling much better and wants to go home Her blood pressure is controlled and she has been ambulating in the room without any difficulties Denies any significant symptoms Review of Systems Review of Systems: All systems reviewed and are unremarkable except as noted below Physical Exam Physical Exam: Sitting at the edge of the bed without any acute distress Constitutional: well developed, well nourished and + obese Eyes: PERRL, conjunctivae normal, anicteric sclerae ENMT: external ear and nose normal, oropharynx normal Neck: trachea midline, no thyromegaly Respiratory: no respiratory distress Auscultation: lungs clear to auscultation bilaterally; no crackles and no wheezes Cardiovascular: Rate/Rhythm: regular rate and regular rhythm; not tachycardic Heart Sounds: normal S1 and normal S2; no murmur Extremities: + edema (1+ edema bilaterally with chronic skin changes both the legs) Gastrointestinal (Abdomen): Inspection/Auscultation: + abdomen distended and normal bowel sounds Percussion/Palpation: abdomen soft; abdomen nontender Musculoskeletal: No acute arthritis in any joint Neurologic: Alert, awake and oriented x3. Generally weak but no focal sensory and motor deficit appreciated Lymphatic: no cervical or axillary lymphadenopathy Results & Data Results & Data ([facility]) Vital Signs (Past 12 Hours) Vital Signs Temp Pulse Pulse Resp BP BP Pulse Ox 07/21/21 13:49 36.9 C 85 20 107/72 115/63 98 07/21/21 11:30 36.9 C 85 20 115/63 98 07/21/21 08:00 78 07/21/21 03:47 36.7 C 82 20 107/72 96 Laboratory Results Current Inpatient Medications Acetaminophen (Acetaminophen 325 Mg Tab) 650 mg PO Q4H PRN PRN Reason: Pain or Fever Stop: 08/17/21 15:21 Al Hydrox/Mg Hydrox/Simethicone (Aluminum/Magnesium Susp 30 Ml Udc) 15 ml PO Q4H PRN PRN Reason: Dyspepsia Stop: 08/17/21 15:21 Albuterol (Albuterol 0.083% Nebu Soln 3 Ml Vial) 2.5 mg NEB Q6R PRN PRN Reason: sob Stop: 08/17/21 15:21 Last Admin: 07/20/21 10:37 Dose: 2.5 mg Documented by: Atorvastatin Calcium (Atorvastatin 20 Mg Tab) 20 mg PO QDL [facility] Stop: 08/18/21 11:29 Last Admin: 07/21/21 11:49 Dose: 20 mg Documented by: Cefuroxime Axetil (Cefuroxime Axetil 500 Mg Tab) 500 mg PO Q12H [facility]; Protocol Stop: 07/25/21 18:00 Cyanocobalamin (Cyanocobalamin 500 Mcg Tablet (Vitamin B-12)) 1,000 mcg PO QDL [facility] Stop: 08/18/21 11:29 Last Admin: 07/21/21 11:48 Dose: 1,000 mcg Documented by: Dextrose (Dextrose 50% 50 Ml Syringe) 25 - 50 ml IV UD PRN; Protocol PRN Reason: Hypoglycemia Protocol Stop: 08/17/21 15:21 Doxycycline Hyclate (Doxycycline Hyclate 100 Mg Cap) 100 mg PO BID [facility] Stop: 07/25/21 20:59 Last Admin: 07/21/21 08:43 Dose: 100 mg Documented by: Enoxaparin Sodium (Enoxaparin 150 Mg/Ml Syr) 150 mg SQ BID [facility]; Protocol Stop: 08/20/21 09:59 Last Admin: 07/21/21 11:48 Dose: 150 mg Documented by: Enoxaparin Sodium (Enoxaparin Inj 40 Mg/0.4 Ml Syr) 40 mg SQ BID [facility]; Protocol Stop: 08/20/21 09:59 Last Admin: 07/21/21 11:48 Dose: 40 mg Documented by: Glucagon (Glucagon For Inj 1 Mg Vial) 1 mg SQ UD PRN; Protocol PRN Reason: Hypoglycemia Protocol Stop: 08/17/21 15:21 Glucose (Glucose 10 Tabs/Tube) 4 - 8 tabs PO UD PRN; Protocol PRN Reason: Hypoglycemia Protocol Stop: 08/17/21 15:21 Glucose (Glucose 40% Gel 15 Gm Tube) 15 - 30 gm PO UD PRN; Protocol PRN Reason: Hypoglycemia Protocol Stop: 08/17/21 15:21 Lisinopril/HCTZ (Lisinopril/Hctz 20/25mg 1 Tab) 1 tab PO QAM [facility] Stop: 08/19/21 08:59 Last Admin: 07/21/21 08:43 Dose: 1 tab Documented by: Insulin Aspart (Insulin Aspart 100 Units/Ml 3 Ml Pen) 0 units SC ACHS [facility] Stop: 08/17/21 16:29 Last Admin: 07/21/21 11:43 Dose: 16 units Documented by: Insulin Glargine (Insulin Glargine Solostar 100 Units/Ml 3 Ml Pen) 60 units SC BID [facility]; Protocol Stop: 08/20/21 20:59 Lactic Acid (Ammonium Lactate 12% Lotion 225 Gm Btl) 1 gm EXT BID [facility] Stop: 08/17/21 20:59 Last Admin: 07/21/21 08:44 Dose: 1 gm Documented by: Levothyroxine Sodium (Levothyroxine Sodium 100 Mcg Tablet) 100 mcg PO DAILYBB [facility] Stop: 08/18/21 06:29 Last Admin: 07/21/21 06:39 Dose: 100 mcg Documented by: Magnesium Hydroxide (Magnesium Hydroxide Susp 30 Ml Udc) 30 ml PO Q12H PRN PRN Reason: Constipation Stop: 08/17/21 15:21 Miscellaneous (Carbohydrates For Hypoglycemia ) 15 - 30 gm PO UD PRN PRN Reason: Hypoglycemia Protocol Stop: 08/17/21 15:21 Miscellaneous Information (Pharmacy Glycemic Mgmt Consult) 1 ea N/A UD PRN; Protocol PRN Reason: Consult Stop: 08/17/21 15:21 Multivitamins (Multivitamin Tab) 1 tab PO QDL [facility] Stop: 08/18/21 11:29 Last Admin: 07/21/21 11:48 Dose: 1 tab Documented by: Ondansetron HCl (Ondansetron Inj 2 Mg/Ml 2 Ml Vial) 4 mg IV Q6H PRN PRN Reason: Nausea Stop: 08/17/21 15:21 Polyethylene Glycol (Polyethylene (Miralax) 17 Gm Pack) 17 gm PO DAILY PRN PRN Reason: Constipation Stop: 08/17/21 15:21 Last Admin: 07/19/21 23:27 Dose: 17 gm Documented by: Warfarin Sodium (Warfarin Sod 10 Mg Tab) 10 mg PO DAILY@1600 [facility] Stop: 08/20/21 15:59 Medications Administered Current Inpatient Medications Acetaminophen (Acetaminophen 325 Mg Tab) 650 mg PO Q4H PRN PRN Reason: Pain or Fever Stop: 08/17/21 15:21 Al Hydrox/Mg Hydrox/Simethicone (Aluminum/Magnesium Susp 30 Ml Udc) 15 ml PO Q4H PRN PRN Reason: Dyspepsia Stop: 08/17/21 15:21 Albuterol (Albuterol 0.083% Nebu Soln 3 Ml Vial) 2.5 mg NEB Q6R PRN PRN Reason: sob Stop: 08/17/21 15:21 Last Admin: 07/20/21 10:37 Dose: 2.5 mg Documented by: Atorvastatin Calcium (Atorvastatin 20 Mg Tab) 20 mg PO QDL [facility] Stop: 08/18/21 11:29 Last Admin: 07/21/21 11:49 Dose: 20 mg Documented by: Cefuroxime Axetil (Cefuroxime Axetil 500 Mg Tab) 500 mg PO Q12H [facility]; Protocol Stop: 07/25/21 18:00 Cyanocobalamin (Cyanocobalamin 500 Mcg Tablet (Vitamin B-12)) 1,000 mcg PO QDL [facility] Stop: 08/18/21 11:29 Last Admin: 07/21/21 11:48 Dose: 1,000 mcg Documented by: Dextrose (Dextrose 50% 50 Ml Syringe) 25 - 50 ml IV UD PRN; Protocol PRN Reason: Hypoglycemia Protocol Stop: 08/17/21 15:21 Doxycycline Hyclate (Doxycycline Hyclate 100 Mg Cap) 100 mg PO BID [facility] Stop: 07/25/21 20:59 Last Admin: 07/21/21 08:43 Dose: 100 mg Documented by: Enoxaparin Sodium (Enoxaparin 150 Mg/Ml Syr) 150 mg SQ BID [facility]; Protocol Stop: 08/20/21 09:59 Last Admin: 07/21/21 11:48 Dose: 150 mg Documented by: Enoxaparin Sodium (Enoxaparin Inj 40 Mg/0.4 Ml Syr) 40 mg SQ BID [facility]; Protocol Stop: 08/20/21 09:59 Last Admin: 07/21/21 11:48 Dose: 40 mg Documented by: Glucagon (Glucagon For Inj 1 Mg Vial) 1 mg SQ UD PRN; Protocol PRN Reason: Hypoglycemia Protocol Stop: 08/17/21 15:21 Glucose (Glucose 10 Tabs/Tube) 4 - 8 tabs PO UD PRN; Protocol PRN Reason: Hypoglycemia Protocol Stop: 08/17/21 15:21 Glucose (Glucose 40% Gel 15 Gm Tube) 15 - 30 gm PO UD PRN; Protocol PRN Reason: Hypoglycemia Protocol Stop: 08/17/21 15:21 Lisinopril/HCTZ (Lisinopril/Hctz 20/25mg 1 Tab) 1 tab PO QAM [facility] Stop: 08/19/21 08:59 Last Admin: 07/21/21 08:43 Dose: 1 tab Documented by: Insulin Aspart (Insulin Aspart 100 Units/Ml 3 Ml Pen) 0 units SC ACHS [facility] Stop: 08/17/21 16:29 Last Admin: 07/21/21 11:43 Dose: 16 units Documented by: Insulin Glargine (Insulin Glargine Solostar 100 Units/Ml 3 Ml Pen) 60 units SC BID [facility]; Protocol Stop: 08/20/21 20:59 Lactic Acid (Ammonium Lactate 12% Lotion 225 Gm Btl) 1 gm EXT BID [facility] Stop: 08/17/21 20:59 Last Admin: 07/21/21 08:44 Dose: 1 gm Documented by: Levothyroxine Sodium (Levothyroxine Sodium 100 Mcg Tablet) 100 mcg PO DAILYBB [facility] Stop: 08/18/21 06:29 Last Admin: 07/21/21 06:39 Dose: 100 mcg Documented by: Magnesium Hydroxide (Magnesium Hydroxide Susp 30 Ml Udc) 30 ml PO Q12H PRN PRN Reason: Constipation Stop: 08/17/21 15:21 Miscellaneous (Carbohydrates For Hypoglycemia ) 15 - 30 gm PO UD PRN PRN Reason: Hypoglycemia Protocol Stop: 08/17/21 15:21 Miscellaneous Information (Pharmacy Glycemic Mgmt Consult) 1 ea N/A UD PRN; Protocol PRN Reason: Consult Stop: 08/17/21 15:21 Multivitamins (Multivitamin Tab) 1 tab PO QDL [facility] Stop: 08/18/21 11:29 Last Admin: 07/21/21 11:48 Dose: 1 tab Documented by: Ondansetron HCl (Ondansetron Inj 2 Mg/Ml 2 Ml Vial) 4 mg IV Q6H PRN PRN Reason: Nausea Stop: 08/17/21 15:21 Polyethylene Glycol (Polyethylene (Miralax) 17 Gm Pack) 17 gm PO DAILY PRN PRN Reason: Constipation Stop: 08/17/21 15:21 Last Admin: 07/19/21 23:27 Dose: 17 gm Documented by: Warfarin Sodium (Warfarin Sod 10 Mg Tab) 10 mg PO DAILY@1600 [facility] Stop: 08/20/21 15:59 (1) Pneumonia involving left lung Lung location: unspecified part of lung Pneumonia type: due to unspecified organism Qualified Code(s): J18.9 - Pneumonia, unspecified organism
[2021-07-21] MEDS ORDERED: WARFARIN SOD 10 MG TAB PO SCH (16:00)
[2021-07-21] MEDS ORDERED: cefUROXime axetil 500 MG TAB PO SCH (17:00)
[2021-07-21] MEDS ORDERED: INSULIN GLARGINE SOLOSTAR 100 UNITS/ML 3 ML PEN SC SCH (21:00)
--- NOTE | 2021-07-22 07:27 | Discharge Summary ---
Date of Service July 22, 2021 Admission HPI Per Admitting Provider This is a 50-year-old male who has significant past medical history of insulin- dependent type 2 diabetes, HTN, hypothyroidism, morbid obesity, diabetic neuropathy who presents to ED secondary to shortness of breath x1 day. Of significance approximately 2 weeks ago patient was diagnosed with herpes zoster. He was prescribed gabapentin for neuropathic pain. Pt recently had increase in gabapentin from 1 tablet at bedtime to one tablet TID. He has been on gabapentin for 1.5wks. He feels gabapentin helped with pain, but he was concerned he was having a reaction so he stopped it last night due to developing shortness of breath. He states 2 days ago he felt dizziness and weak, but attributed it to his blood sugar. Yesterday he felt himself becoming SOB. SOB mostly was with exertion and doing little activity including going from living room to bathroom. He knows he is out of shape, but feels just little activity causes him to be short of breath. It resolved with substantial rest. He also c/o cough, wet but unable to produce. He had one episode of loose stool from last night and attributes it to metformin. He has been working from home since [place] due to location being on pant line and unable to wear pants. Denies sick contacts. Vaccinated for covid. He admits to gaining 40lbs since the start of covid. He hasn't noticed any significant fluctuation in weight in past 2 weeks. He c/o of increased swelling to b/l lower extremities. Has chronic discoloration of lower extremities and does not feel it is worse. Denies hx of CAD or heart failure. He has had leg swelling chronically for years. He does snore at night when laying on back, but on side okay. Denies being tested for GRADY. Denies f/c/s, syncope, chest pain, hemopytsis, n/v/abdominal pain, dysuria, increased freq/urg, melena, hematochezia. He continues to have burning sensation in location of shingles, but rash is gone. In ED patient was significantly hypoxic requiring 6 L of oxygen. Chest x-ray concerning for consolidative process in left lower lobe concerning for possible development of pneumonia. He did meet sepsis criteria secondary to leukocytosis 14.92k, tachycardia and tachypnea. He was treated with IV Rocephin and azithromycin to cover for community-acquired pneumonia. There was also concern for congestive heart failure component of where he was given 40 mg of IV Lasix. He does admit to urinating since administ ration. Further lab abnormalities include elevated BUN/creatinine at 30-1.44, glucose 353, troponin elevated 0.144, proBNP 2206. His procalcitonin was WNL. He tested negative for SARS-CoV-2 and influenza. He is fully vaccinated for COVID-19. Admission Exam Per Admitting Provider Physical Exam: Constitutional: WD/WN,morbidly obese, vitals as above, NAD, sitting up in bed, pleasant, conversing easily Head: Normocephalic, Atraumatic Eyes: PERRL, conjunctivae normal, anicteric sclerae ENMT: external ear and nose normal, oropharynx normal Neck: trachea midline, no thyromegaly normal visual inspection Respiratory: increased respiratory effort, tachypneic, lungs clear to auscultation, no wheeze, rales, rhonchi. no accessory muscle use, on 6L NC Cardiovascular: tachycardic rate, reg rhythm, no murmur, b/l chronic venous stasis changes, nonpitting edema, obese LE. Vessels: no JVD or carotid bruit Chest: normal inspection of chest Abdomen: normal bowel sounds, soft, nontender, no hepatosplenomegaly Musculoskeletal: no cyanosis or clubbing, extremities motor strength 5/5 Skin: no rashes, warm and dry normal turgor Neurologic: PERRL, EOMI, accommodation nl, no face palsy, no dysarthria CN's II-XI intact bilaterally and moves all extremities Psychiatric: A+Ox3, euthymic affect Lymphatic: no cervical or axillary lymphadenopathy : deferred Principal Diagnosis Sepsis secondary to left lower lobe pneumonia, acute respiratory failure with hypoxia, acute left deep vein thrombosis, shingles rash, hypertension, type 2 diabetes Discharge Exam Constitutional well developed, well nourished and + obese Eyes PERRL, conjunctivae normal, anicteric sclerae ENMT external ear and nose normal, oropharynx normal Neck trachea midline, no thyromegaly Respiratory no respiratory distress Auscultation: lungs clear to auscultation bilaterally; no crackles and no wheez es Cardiovascular Rate/Rhythm: regular rate and regular rhythm; not tachycardic Heart Sounds: normal S1 and normal S2; no murmur Extremities: + edema (1+ edema bilaterally with chronic skin changes both the legs) Gastrointestinal (Abdomen) Inspection/Auscultation: + abdomen distended and normal bowel sounds Percussion/Palpation: abdomen soft; abdomen nontender Lymphatic no cervical or axillary lymphadenopathy Discharge Data Allergies Allergy/AdvReac Type Severity Reaction Status Date / Time Penicillins Allergy Intermediate HIVES Verified 07/18/21 09:47 Consultations 07/18/21 11:11 ED Decision to Admit Stat 07/18/21 11:34 Consult Cardiology Routine Ordered Studies 07/18/21 12:06 US venous doppler LE BI Stat Diabetes Follow up Diabetes Follow-up Needed for HgbA1c >9% Hospital Course (1) Sepsis: Sepsis secondary to left lower lobe pneumonia-resuscitated, continue plan per below. Remains asymptomatic without any cough and/or shortness of breath Continue current management Antibiotics will be continued for 4 more days (2) Acute respiratory failure with hypoxia: Acute respiratory failure with hypoxia likely secondary to pneumonia. However, in the setting of acute lower extremity DVT, pulmonary embolus is a possibility. Obtaining a CT with contrast of the chest was not ideal yesterday given the ongoing Metformin use and lactic acidosis. Today, it will not change our management. I discussed this with the patient and he is fine without the CT of the chest. No more shortness of breath and has been saturating well with room air (3) Pneumonia involving left lung: Continues on antibiotics including cefepime and doxycycline pending clinical improvement and negative culture results. The patient is notably a non-smoker. COVID-19 PCR is negative. Aspiration does not seem likely in this 50-year-old alert and oriented patient. Consider Pneumovax vaccine if not given previously, prior to discharge. We will change antibiotic to oral and finish the course of 7 days of antibiotic He will have cefuroxime and doxycycline for 4 more days to finish the course (4) Acute deep vein thrombosis of left lower extremity: Continue heparin drip with transition to NOAC prior to discharge. Would consider this a provoked DVT given the recent infections including herpes zoster and pneumonia. He has no history of blood clot in the past and would denies a family history of blood clots. No acute contraindicated-discussed with the pharmacist We will start Coumadin and Lovenox Discharge tomorrow Coumadin has been continued for about 3 months Coumadin 7.5 mg daily has been given with Lovenox 190 mg subcu twice daily and he will have appointment with Coumadin clinic on seventh of this month (5) EDITH (acute kidney injury): EDITH likely secondary to sepsis and dehydration from recent illnesses, improved after resuscitation efforts overnight. Creatinine remains stable at 1.4 on (6) Shingles rash: Patient completed a 7-day course of antiviral therapy and rash is healing nicely. Continue supportive therapies, currently he declines any gabapentin. Would avoid any external creams at this point given the lesions are still slightly open. Continue isolation precautions-we will DC if there is no scales (7) Hypertension: Blood pressure at goal. Lisinopril HCTZ was held in the setting of sepsis on admission. We will restart on discharge (8) Elevated troponin: Mild elevation overnight that is descending. Likely secondary to demand ischemia in setting of sepsis. Patient denies any chest pain and was evaluated by cardiology. No ACS and echo was performed with no regional wall motion abnormalities. (9) Uncontrolled type II diabetes mellitus: Hyperglycemia this admission, insulin managed by glycemic pharmacist. Changes have been made this morning to continue efforts to get him within range. He remains slightly above 200 at this point. Continue basal bolus insulin per glycemic pharmacist. Monitor for discharge recommendations with uncontrolled A1c. Of 11.1 this a dmission. Goal A1c would be less than 7. Continue to work with outpatient provider to meet this goal. We will need to follow-up appointment with diabetic clinic (10) Morbid obesity: Lifestyle changes recommended to decrease percent body fat and increased lean muscle mass for overall health. (11) DVT prophylaxis: Heparin drip-changed to Lovenox subcu and added Coumadin Full code Disposition-to home when off oxygen and medically stable. Likely discharge tomorrow. Total Time Total Time Spent Total Time Spent (In Minutes): 45 minutes Discharge Plan Discharge Items Patient Disposition: Home - Self-Care Reason For Visit: HYPOXIA,CHF,PNA Discharge Diagnosis: Sepsis secondary to left lower lobe pneumonia, acute respiratory failure with hypoxia, acute left deep vein thrombosis, shingles rash, hypertension, type 2 diabetes Activity: Resume your previous activity Non-emergency contact: Primary Care Provider Call non-emergency contact if: you have any medication questions and your symptoms worsen Follow-up/Referrals: [facility] ([facility]) [Other] - 07/24/21 11:50 am Daniela Sam DO [Primary Care Provider] - (Date & Time 07/27/2021 12:[address] PA-C Department Family Practice [facility] ) Diet: Carb Consistent or DM2, Heart Healthy and Low Sodium (2gm) Addtl Attending Provider Instructions: Please take precautions to avoid fall Avoid any strenuous activities Finish the course of antibiotic Keep appointments with coagulation clinic and your primary care physician and also diabetic clinic Pending Studies at Discharge: No Stand-Alone Forms: My [facility], Smoking Cessation Medications and DC Order Prescriptions: New doxycycline hyclate 100 mg Capsule 100 mg PO BID 4 Days Qty: 8 RF: 0 cefuroxime axetil 500 mg Tablet 500 mg PO Q12H 4 Days Qty: 8 RF: 0 enoxaparin [Lovenox] 150 mg/mL Syringe 150 mg subcut BID 10 Days Qty: 20 RF: 0 enoxaparin 40 mg/0.4 mL Syringe 40 mg subcut BID 10 Days Qty: 8 RF: 0 warfarin 7.5 mg tablet 7.5 mg PO DAILY Qty: 30 RF: 0 Continued atorvastatin 20 mg Tablet 20 mg PO QDL RF: 0 multivitamin Tablet 1 tab PO QDL RF: 0 cyanocobalamin (vitamin B-12) [Vitamin B-12] 1,000 mcg Tablet 1,000 mcg PO QDL RF: 0 lisinopril-hydrochlorothiazide 20-25 mg Tablet 2 tab PO QDL RF: 0 insulin aspart U-100 [Novolog PenFill U-100 Insulin] 100 unit/mL Cartridge 30 unit SUBCUT AC RF: 0 metformin 1,000 mg Tablet Extended Release 24hr 1,000 mg PO BID RF: 0 cinnamon bark [Cinnamon] 500 mg Capsule 2 cap PO BID RF: 0 levothyroxine 100 mcg Capsule 100 mcg PO QAM RF: 0 Tresiba FlexTouch U-200 200 unit/mL (3 mL) insulin pen 45 unit SUBCUT BID RF: 0 Discharge Orders: Discharge Order (Routine); Ordered 07/21/21 Ordered By: Dana Alba/Other Patient Handouts: Using a Blood Sugar Log, Heart Failure Meds, What Is Heart Failure, Heart Failure Signs of Flare-Up, Heart Failure: Tracking Your Weight, High Blood Sugar (Hyperglycemia), Hypoglycemia (Low Blood Sugar), How to Check Your Blood Sugar, Healthy Meals for Diabetes Admission Data Admit Date/Time: 07/18/21 11:34 Attending Provider: Dana Olsen Admit Provider: Mitchell Demarco Primary Care Provider: Daniela Sam Other Providers: Pj Avila ; Mitchell Demarco ; Ledy Horne Other Interventions: Discharge Summary Assessment (RN) Last Done: 07/21/21 13:49
== END 2021-07-21 14:26 | disposition home or self-care (01) | DRG 871 ==
LOC: ED 08:42 → SUATTDRO 11:34 → 2S 11:34